=== PATIENT | male | born 1940 | race Hispanic/Latino ===

== ENCOUNTER 2016-09-25 06:52 | Outpatient (CLI) | payer MEDICARE ==
--- NOTE | 2016-09-25 11:58 | Cat Scan Report ---
CT CHEST WITHOUT CONTRAST: INDICATION: Interstitial lung disease. COMPARISON: 06/29/2014 chest CTA. FINDINGS: Noncontrast chest CT again demonstrates pulmonary arterial hypertension. No aortic aneurysm with few atherosclerotic calcifications. Assessment of the great vessels and for detecting subtle lymphadenopathy though limited due to lack of IV contrast. However, few small mediastinal lymph nodes again noted, measuring up to approximately 1 cm or smaller as on axial series 2, image 102. No size significant axillary lymphadenopathy. Normal thyroid. Normal heart size with silhouette mildly exaggerated due to pericardial fat pad. Patent central airway. Overall improvement in pulmonary ground glass haziness since June 2014, revealing mild emphysematous changes with most involvement of the upper lobes. Few lower lobe bullae also noted, the largest again at the right lung base measuring 4.3 cm, axial image 154, series 2. Mild bibasilar scarring and slight bronchiectasis also noted. Predominantly bilateral lower lobe septal thickening also noted, in part subpleural. An approximately 3 mm left lower lung calcified granuloma along the fissure, axial image 139, series 2 as also another right upper lobe posteromedially along the pleura, axial image 90 again seen. No effusions. Few upper abdominal images now demonstrate dependent density in the gallbladder, axial image 239, series 2, possibly sludge and/or small calculi. Mild bilateral perinephric stranding also again partially imaged. Upper anterior abdominal wall midline fat-containing hernia with a transverse neck of 2.5 cm, axial image 263, series 2. Multilevel thoracic spine degenerative changes, including large, predominantly right-sided osteophytes along its [id number] levels. CONCLUSION: 1. Overall interval improvement in bilateral pulmonary ground glass haziness, as described. Underlying emphysematous changes now evident, most involving the upper lobes with chronic interstitial changes at the lung bases, including scarring, subpleural septal thickening and few bullae noted, amongst others, as above. No significant honeycombing, however. 2. New gallbladder sludge/calculi. 3. Few other incidental findings, including pulmonary arterial hypertension and an upper abdominal midline ventral wall fat-containing hernia, amongst others, as above. Thank you for the opportunity to participate in this patient's care.
== END 2016-09-25 06:53 | disposition home or self-care (01) ==
LOC: CT 06:52
PROVIDERS: ATTEND Internal Medicine Critical Care Medicine
DX: J84.9 Interstitial pulmonary disease, unspecified (principal); K80.20 Calculus of gallbladder without cholecystitis without obstruction; M47.894 Other spondylosis, thoracic region; J43.8 Other emphysema
CPT/HCPCS: 71250

== ENCOUNTER 2016-11-19 00:24 | Emergency (ER) | payer MEDICARE ==
[2016-11-19] MEDS ORDERED: MORPHINE ONE ×2 (03:58→04:03)
[2016-11-19] MEDS ORDERED: APRESOLINE ONE (03:58)
[2016-11-19 06:03] LABS: Bilirubin,Urine NEG (Negative); Blood,Urine MOD (Negative); Ketones,Urine NEG (Negative); Leukocyte Esterase,Urine NEG (Negative); Mucus,Urine FEW /HPF; Nitrite,Urine NEG (Negative); Urobilinogen,Urine < 2.0 mg/dL (<2.0); WBC,Urine < 1.0 /HPF (0.0-6.0)
[2016-11-19 06:23] LABS: Alanine Aminotransferase 30 units/L (7-56); Albumin 4.2 g/dL (3.9-5); Albumin/Globulin Ratio 1.3 %; Alkaline Phosphatase 85 units/L (35-129); Anion Gap 18 mmol/L; Bilirubin,Total 0.5 mg/dL (0.1-1.2); Blood Urea Nitrogen 12 mg/dL (9-20); Calcium 9.2 mg/dL (8.4-10.2); Carbon Dioxide 30 mmol/L (22-30); Chloride 100.8 mmol/L (98-107); Glucose 132 mg/dL (75-100); Lipase 23 units/L (13-60); Potassium 4.4 mmol/L (3.6-5.0); Sodium 144 mmol/L (137-145); Total Protein 7.5 g/dL (6.3-8.2)
[2016-11-19 06:47] LABS: Basophils % (Auto) 1.3 % (0.0-1.8); Eosinophils % (Auto) 4.3 % (0.0-4.3); Hematocrit 44.2 % (35.5-45.6); Mean Corpuscular HGB Conc 34 % (32-34); Mean Corpuscular Hemoglobin 31 pg (28-32); Mean Corpuscular Volume 92 fl (84-94); Platelet Count 163 K/mm3 (140-440); Red Blood Count 4.79 M/mm3 (3.65-5.03); Red Cell Distribution Width 13.9 % (13.2-15.2); White Blood Count 5.5 K/mm3 (4.5-11.0)
--- NOTE | 2016-11-19 07:25 | XRay Report ---
Abdominal series: History: Chest and abdominal pain. Findings: Borderline cardiomegaly with bibasilar atelectasis. No free intraperitoneal air. No bowel distention or wall thickening or fluid levels. Stool in colon. No radiopaque calculus or abnormal calcification. Impression: Stool in ascending colon. No bowel distention.
--- NOTE | 2016-11-19 07:31 | Emergency Department Report ---
HPI - General Chief Complaint: Chest Pain Time Seen by Provider: 11/19/16 06:22 - HPI HPI: This is a 76-year-old male who drove himself in to be seen tonight with complaint of pain to the lower chest and upper abdomen that is been going on since about 6 PM this evening. Associated with some nausea and vomiting. He denies any back pain, dysuria, problems with bowel or bladder, fever, diaphoresis, shortness of breath. He has not taken anything for symptoms prior to presentation. He says that he ate some tuna salad for lunch and wonders if this could be some type of food poisoning. He feels like the pain is gas but he is unable to burp or pass gas rectally. He took some Gas-X for his symptoms without any relief. He has a past medical history of pulmonary arterial hypertension, hypertension. His PCP is Dr Abdalla and his pulmonolgist is Dr Gage. ED Past Medical Hx - Past Medical History Previous Medical History?: Yes Hx Hypertension: Yes Hx Heart Attack/AMI: No Hx Congestive Heart Failure: No Hx Deep Vein Thrombosis: No Hx Pulmonary Embolism: No Hx GERD: Yes Hx Arthritis: No Hx Seizures: No Hx Asthma: No Hx COPD: No Hx Tuberculosis: No Hx Dementia: No Hx HIV: No Additional medical history: wears home O2. - Surgical History Past Surgical History?: Yes Hx Coronary Stent: No Hx Open Heart Surgery: No Hx Pacemaker: No Hx Internal Defibrillator: No Additional Surgical History: hernia repair - Social History Smoking Status: Never Smoker Substance Use Type: None - Medications Home Medications: Home Medications Medication Instructions Recorded Confirmed Last Taken Type Aspirin [Aspirin BABY CHEW TAB] 81 mg PO QDAY 05/18/14 06/28/14 06/27/14 History Tamsulosin [Flomax] 0.4 mg PO QDAY 05/18/14 06/28/14 06/27/14 History Nebulizer/Compressor [Innospire 1 each MC DAILY #1 each 05/23/14 06/28/14 Rx Essence Alexandra Neb] Allopurinol [Zyloprim] 100 mg PO QDAY 06/28/14 06/28/14 06/27/14 History Amlodipine Besylate/Benazepril 1 cap PO DAILY 06/28/14 06/28/14 06/27/14 History [amLODIPine-Benazepril 10/40 mg] Atorvastatin (Nf) [Lipitor (Nf)] 20 mg PO QDAY 06/28/14 06/28/14 06/27/14 History Arformoterol Nebu [Brovana Nebu] 15 mcg IH DAILY #120 ml 07/03/14 Unknown Rx Budesonide [Pulmicort Respules] 0.5 mg IH Q12HRT #120 nebu 07/03/14 Unknown Rx Furosemide [Lasix] 40 mg PO DAILY #30 tablet 07/03/14 Unknown Rx Potassium Chloride [K-Dur] 20 meq PO QDAY #30 tablet 07/03/14 Unknown Rx Prednisone 10 mg PO DAILY #96 tablet 07/03/14 Unknown Rx ED Review of Systems ROS: Stated complaint: CP/ABD PAIN Other details as noted in HPI Other: Gen: No chills, diaphoresis or fever Eyes: No eye pain or discharge ENT: No throat pain or ear pain Cardio: +CP, no palpatations or edema. Lungs: No SOB or cough. Abd: +abdominal pain, +N/V : No dysuria, hematuria. Skin: No rash, lesions, pruritis Neuro: No headache, numbness or paresthesias. Physical Exam - Physical Exam Vital Signs: Vital Signs 11/19/16 00:30 Temperature 97.9 F Pulse Rate 60 Respiratory 20 Rate Blood Pressure 211/114 [Right] O2 Sat by Pulse 99 Oximetry Physical Exam: GENERAL: The patient is well-developed well-nourished. Patient does not appear in any acute distress. HEENT: Normocephalic. Atraumatic. Extraocular motions are intact. Patient has moist mucous membranes. Pupils equal reactive to light bilaterally. NECK: Supple. Trachea is midline. CHEST/LUNGS: Clear to auscultation. There is no respiratory distress noted. Chest pain is not reproducible to palpation of chest wall. HEART/CARDIOVASCULAR: Regular. There is no tachycardia. There is no gallop rub or murmur. ABDOMEN: Abdomen is soft, nontender. Abdominal pain is not reproducible to palpation. No guarding or rebound tenderness. Patient has normal bowel sounds. There is no abdominal distention. SKIN: There is no rash. There is no edema. There is no diaphoresis. NEURO: The patient is awake, alert, and oriented. The patient is cooperative. The patient has no focal neurologic deficits. The patient has normal speech and gait. Cranial nerves II through XII grossly intact. MUSCULOSKELETAL: There is no tenderness or deformity. There is no limitation range of motion. There is no evidence of acute injury. Muscle strength 5 out of 5 for upper and lower extremity bilaterally. Cap refill less than 2 seconds. ED Course Vital Signs 11/19/16 00:30 Temperature 97.9 F Pulse Rate 60 Respiratory 20 Rate Blood Pressure 211/114 [Right] O2 Sat by Pulse 99 Oximetry ED Medical Decision Making - Lab Data Result diagrams: 11/19/16 05:15 11/19/16 03:00 - EKG Data -: EKG Interpreted by Me EKG shows normal: sinus rhythm, axis, intervals, QRS complexes, ST-T waves Rate: normal - EKG Data When compared to previous EKG there are: no significant change Interpretation: normal EKG - Radiology Data Radiology results: report reviewed, image reviewed interpreted by me: Chest x-ray did not show any acute process. Heart is normal shape and size. No effusions. No pneumothorax. No signs of pneumonia seen. Abdomen shows stool throughout the colon. CT angiography of the chest shows that the heart is enlarged. There is no pericardial effusion. There is no thoracic aortic aneurysm or dissection. There are fibrotic and cystic changes at the lung bases. There are no active infiltrates, effusions or pneumothoraces. Images of the upper abdomen demonstrates cholelithiasis. There is a ventral hernia containing omental fat only. - Medical Decision Making 76-year-old male presents the emergency department with upper abdominal pain and lower chest pain. Patient's labs and mostly unremarkable including negative troponins 2. Patient's labs also include negative belly labs like lipase, LFTs and bilirubin. A chest and abdominal x-ray were done that did not show any acute process. However the patient did have a elevated d-dimer, slightly, at about 310, so a CT angiography of the chest was done. There was some concern with his area of discomfort that it could be the aorta but the CT angiography did not show any signs of aneurysm or dissection. They went far enough down to the upper abdomen that it display cholelithiasis without cholecystitis. However due to the patient's history of arterial pulmonary hypertension, hypertension and his chest pain, the plan was to admit to the hospital for further evaluation and probable cardio consultation. However the patient says that he is responsible for his daughter, who is going to end stage Alzheimer's, and his is also currently sick and he is unable to be admitted to the hospital. He understands the risks of leaving AGAINST MEDICAL ADVICE including continued pain, debility, heart attack, coma and . Despite that he is instructed and signing out AMA. He has an appointment next week with his line cook that he will keep. He knows he can return at any point to the emergency department for evaluation - Differential Diagnosis MT, cholelithiasis, hypertensive crisis, PE, pneumonia Critical Care Time: No Critical care attestation.: If time is entered above; I have spent that time in minutes in the direct care of this critically ill patient, excluding procedure time. ED Disposition Clinical Impression: Biliary colic, Hypertensive urgency Cholelithiasis Qualifiers: Cholelithiasis location: gallbladder Cholecystitis presence: without cholecystitis Biliary obstruction: without biliary obstruction Qualified Code(s) : K80.20 - Calculus of gallbladder without cholecystitis without obstruction Chest pain Qualifiers: Chest pain type: unspecified Qualified Code(s): R07.9 - Chest pain, unspecified Disposition: LEFT AGAINST MEDICAL ADVICE Is pt being admited?: No Condition: Stable Instructions: Chest Pain (ED), Biliary Colic (ED), Hypertension (ED) Referrals: PRIMARY CARE, [Primary Care Provider] - 3-5 Days Forms: AMA Form Time of Disposition: 07:32
[2016-11-19] MEDS ORDERED: MORPHINE IV ONE (07:34)
[2016-11-19 08:04] VITALS: BP 171/92
--- NOTE | 2016-11-19 08:58 | Cat Scan Report ---
FINAL REPORT PROCEDURE: CT ANGIOGRAPHY CHEST TECHNIQUE: Computerized axial tomographic angiography of the chest and pulmonary arteries was performed after the IV injection of iodinated nonionic contrast. The image data was postprocessed using maximum intensity projection (MIP) and 2-dimensional multiplanar reformatted (MPR) techniques. The examination is specifically tailored to the evaluation of the pulmonary arteries per clinical request. HISTORY: Short of breath 786.09, chest pain 786.50, chest pain and elev d-dimer epigastric pain COMPARISON: No prior studies are available for comparison. FINDINGS: Heart and pericardium: Heart is enlarged. There is no pericardial effusion.. Thoracic aorta: There is no thoracic aortic aneurysm or dissection.. Pulmonary vasculature: Normal. No pulmonary emboli. Lymph nodes: No enlarged thoracic lymph nodes. Lungs: There are fibrotic and cystic changes at the lung bases. There are no active infiltrates, effusions or pneumothoraces.. Pleural space: No effusion, thickening, or pneumothorax. Musculoskeletal structures: No significant abnormality. Upper abdominal structures: Images of the upper abdomen demonstrate cholelithiasis. There is a ventral hernia containing omental fat only.. IMPRESSION: Heart is enlarged. There is no pericardial effusion.. There is no thoracic aortic aneurysm or dissection.. There are fibrotic and cystic changes at the lung bases. There are no active infiltrates, effusions or pneumothoraces.. Images of the upper abdomen demonstrate cholelithiasis. There is a ventral hernia containing omental fat only.. .
== END 2016-11-19 07:32 | disposition left against medical advice (07) ==
LOC: ED 00:24
DX: K80.20 Calculus of gallbladder without cholecystitis without obstruction (principal); K80.50 Calculus of bile duct without cholangitis or cholecystitis without obstruction; I10 Essential (primary) hypertension; R07.9 Chest pain, unspecified
CPT/HCPCS: 36415; 71275; 74022; 80053; 81001; 83690; 84484; 85025; 93005; 93010; 96374; 99285; J2270; Q9967; J0360

== ENCOUNTER 2016-12-03 11:22 | Day surgery (SDC) | payer MEDICARE ==
[~2016-12-03 11:22] MED LIST: ANCEF/STERILE WATER 2 GM/20 ML 2 GM/20 ML SYRINGE IV SCH; DECADRON ONE; DILAUDID ONE; DIPRIVAN 10 MG/ML IV ONE; XYLOCAINE MPF 2% ONE; ZEMURON IV ONE; ZOFRAN ONE; ceFAZolin 2 GM in NACL 0.9% 100 ML IV ONE
--- NOTE | 2016-12-03 12:06 | Anesthesia Consultation ---
Anesthesia Consult and Med Hx Date of service: 12/03/16 - Airway Anesthetic Teeth Evaluation: Bridges, Dentures Mallampati Class: Class II Intubation Access Assessment: Probably Good - Pulmonary Exam CTA: Yes - Cardiac Exam Cardiac Exam: RRR - Pre-Operative Health Status ASA Pre-Surgery Classification: ASA3 Proposed Anesthetic Plan: General - Pulmonary Hx Smoking: Yes (CIGARETTES 1 1/2 PPD X 13 YRS, QUIT 45 YRS AGO) Hx Asthma: No COPD: No Hx Pneumonia: No Hx Sleep Apnea: No - Cardiovascular System Hx Hypertension: Yes (FOR 10+ YRS, DR. 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 Last took baby aspirin 11/28/16.
--- NOTE | 2016-12-03 12:06 | Anesthesia Day of Surgery ---
Anesthesia Day of Surgery - Day of Surgery Patient Examined: Yes Patient H&P Reviewed: Yes Patient is NPO: Yes
[2016-12-03] MEDS: VERSED IV PRN ×2 (12:40→12:46)
[2016-12-03] MEDS ORDERED: NACL 0.9% 1000 ML 1,000 ML IV ONE (13:00)
[2016-12-03] MEDS ORDERED: PEPCID IV NR (13:00)
[2016-12-03] MEDS ORDERED: ANCEF/STERILE WATER 2 GM/20 ML 2 GM/20 ML SYRINGE IV SCH (13:00)
--- NOTE | 2016-12-03 13:18 | Admit Criteria Form ---
Admission Criteria Documentation: AMBULATORY SURGERY EXCEPTION CRITERIA Ambulatory Surgery Exception Criteria ( Place 'X' for any and all applicable criteria): Surgery or procedure performed on ambulatory basis may require inpatient stay for[A] ANY ONE of the following(1)(2)(3)(4)(5)(6)(7)(8)(9): [X] I. A preoperative situation, condition, or finding that warrants inpatient stay as indicated by ANY ONE of the following: [] a) Inpatient care needed because of severity of a disease or condition rather than the surgery (eg, severe cardiac or respiratory disease, severe infection) (15) (16 ) (17) (18) [] b) Emergent procedure (eg, angioplasty for acute ischemia)(19) [] c) Complex surgical approach or situation as indicated by ANY ONE of the following(3): [] i) Open approach needed instead of usual endoscopic, transcatheter, or other less invasive procedure [] ii) Difficult approach because of previous operation [] iii) Airway monitoring required after open neck procedures(20)(21) [] iv) Large mass requiring unusually extensive dissection [] v) Additional complicating feature requiring inpatient care (eg, drain management)(22(23): [X] d) Major surgery in a pt with high anesthetic risk as indicated by ANY ONE of the following (2)(3)(5)(7)(8): [X] i) ASA risk class III or higher (severe systemic disease impairing function) [D] [] ii) Advanced age (eg, older than 85 years)(14)(24) [] iii) Symptomatic heart failure(25) [] iv) Symptomatic asthma or COPD(8)(21) [] v) Morbid obesity with hemodynamic or respiratory problems(20)( 21)(26)(27) [] vi) Obstructive sleep apnea(20)(21) [] vii) Former premature infants who are younger than 60 weeks [] viii) High risk for severe postoperative abnormalities (eg, severe postoperative hypocalcemia after parathyroidectomy for severe hyperparathyroidism)(27)( 28) [] ix) Unstable angina(25) [] e) Drug-related risk requiring inpatient stay as indicated by ANY ONE of the following(5)(10)(14)(32)(33) [] i) Procedure requires discontinuing drugs or other therapy (eg , antiarrhythmic medication, antiseizure medication), which necessitates inpatient observation or treatment.(18)(31) [] ii) Major surgery and high risk drug use as indicated by ANY ONE of the following: [] 1) Active abuse of cocaine or similar drug [] 2) Monoamine oxidase inhibitor use [] 3) Other drug identified as posing risk [] f) Inadequate outpatient care situation as indicated by ANY ONE of the following(5)(10)(14)(32)(33) [] i) Patient lives remote from medical facility and procedure has urgent complication potential, and temporary nearby residence cannot be arranged [] ii) Patient will have postprocedure incapacitation and inadequate assistance at home, or alternative level of care cannot be arranged. [] iii) Patient will have long general anesthesia or procedure side effect resolution time, and competent person to stay with patient on first postoperative night at home or alternative level of care cannot be arranged. []iv) Other inadequate outpatient situation that cannot be handled by other means [] II. A perioperative event, condition, or finding that warrants inpatient stay as indicated by ANY ONE of the following (1)(2)(3): [] a) Inadequate physiologic recovery: cardiovascular, respiratory, or hemodynamic status not normal or near preoperative baseline(18) [] b) Hemodynamic instability [] c) Patient not alert with near normal or baseline mental status [] d) Temperature not normal or as expected and not appropriate for outpatient treatment of condition [] e) Ambulatory or appropriate activity level status not yet achieved post procedure [E](34)(35)(36) [] f) Operative site not appropriate (eg, unexpected or excessive drainage or bleeding) [] g) Postoperative effects not resolved or adequately managed (eg, significant pain or vomiting not appropriate for outpatient or next level of care)(10)(12) [] h) Complicating features requiring inpatient care as indicated by ANY ONE of the following(37): [] i) Severe complications of procedure (eg, bowel injury, airway compromise, vascular injury,severe hemorrhage) [] ii) Extensive (eg, dissection far beyond usual scope of procedure ) or prolonged (eg, 120 minutes beyond usual) surgery needed requiring inpatient postoperative care [] iii) Conversion to an open or complex procedure that requires inpatient care (eg, open vs laparoscopic cholecystectomy, abdominal vs vaginal hysterectomy)(38) [] iv) Comorbid condition or test result identified during or post procedure that requires inpatient care (7) [] v) Malignant hyperthermia(30) [] vi) Other complicating feature requiring inpatient care(22)(23) Inpatient stay may be needed until ALL of the following are present (1)(2)(3)(4) (5)(6)(10)(14)(33)(40): []a) Physiologic recovery: cardiovascular, respiratory, and hemodynamic status normal or near preoperative baseline []b) Hemodynamic stability []c) Patient alert, with near normal or baseline mental status []d) Temperature appropriate: patient afebrile or temperature appropriate for outpt treatment of condition []e) Activity level appropriate: ambulatory or appropriate activity level post procedure []f) Operative site appropriate as indicated by ALL of the following: []i) Site dry or with expected drainage []ii) Any blood noted is as expected for procedure. []g) Postoperative effects resolved or managed as indicated by ALL of the following: []i) Pain management appropriate for outpatient (or next level of) care(10) []ii) Minimal nausea and vomiting: if present, successfully treated with oral medication(12) []iii) Headache, dizziness, or drowsiness (if present) are mild. []h) Voiding status acceptable as indicated by ANY ONE of the following: []i) Voiding spontaneously []ii) No voiding but instructions given for follow-up in 6 to 8 hours []iii) Urinary catheter in place, and instructions given for follow-up []i) Complicating features requiring inpatient care manageable at a lower level of care(37) []j) Comorbid conditions manageable at a lower level of care(37) The original [employer] content created by [employer] has been revised. The portions of the content which have been revised are identified through the use of italic text or in bold, and [facility] [employer] has neither reviewed nor approved the modified material. All other unmodified content is copyright [employer]. Please see references footnoted in the original [employer] edition 2016 Admission Criteria Met: Yes
[2016-12-03] MEDS ORDERED: MARCAINE-EPI 0.25%-1:200,000 INFILTRATI ONE ×2 (13:47→15:00)
[2016-12-03] MEDS ORDERED: NACL 0.9% IR ONE (15:01)
[2016-12-03] MEDS ORDERED: NORCO 5/325 PO PRN (15:17)
[2016-12-03] MEDS ORDERED: ZOFRAN IV PRN (15:17)
--- NOTE | 2016-12-03 15:17 | Operative Report ---
Operative Report Operative Report: Date of procedure: 12/03/2016 Pre-operative diagnosis: Biliary colic Post-operative diagnosis: Chronic cholecystitis Procedure name(s): Laparoscopic cholecystectomy Surgeon: Dong Pimentel MD Area Mechanic: Nain Jain M.D. Anesthesia: General EBL: Minimal Complications: None Instrument Count: correct Indications: This is a 76-year-old male with a history of right upper quadrant pain. His workup was consistent with a biliary etiology. He was offered the above-named procedures a possible treatment modality. The risks and benefits of discussed until all questions were answered. He was subsequently brought to the OR. Findings: Chronic cholecystitis, incarcerated upper abdominal incisional hernia containing omentum Procedure: We reviewed the informed consent. We placed the patient supine upon the table. After adequate anesthesia was reached, the patient was prepped and draped in usual sterile fashion. A 5 mm incision was made the level of umbilicus and a Veress needle was placed at this position. The abdomen was then insufflated to 15 mmHg and a 5 mm trocar was placed through the umbilical incision. We inserted the camera at this time. Under direct vision and after infiltration of local anesthetic an 11 mm port was placed in the epigastric location. This was followed by placement of two five mm ports in the right upper quadrant. We identified the gallbladder and the fundus was grasped. This was retracted superiorly. We then grasped the infundibulum and retracted it laterally. At this time we dissected free the cystic duct infundibular junction until the triangle of Calot was clearly identified. We placed 3 clips proximally on the cystic duct, 2 distally. We placed 2 clips proximally on the cystic artery. We transected the cystic duct sharply. We transected the cystic artery using electrocautery. We then dissected the gallbladder free from its fossa using electrocautery. This was placed in Endo Catch bag and removed the abdomen to be sent to pathology for further evaluation. We assured hemostasis at this time. We irrigated the abdomen until the irrigant returned clear. We then evacuated the insufflation. We removed all ports and closed all port sites using a 4-0 Monocryl in a subcuticular fashion. The wounds were bandaged sterilely. The patient tolerated procedure well. They were taken to PACU in no apparent distress after extubation.
[2016-12-03] MEDS: DILAUDID IV PRN ×4 (15:29→16:22)
--- NOTE | 2016-12-03 15:29 | Short Stay Summary ---
Short Stay Documentation Date of service: 12/03/16 - History H&P: obtained from office - Allergies and Medications Current Medications: Allergies No Known Allergies Allergy (Verified 10/20/15 12:02) Home Medications Medication Instructions Recorded Confirmed Last Taken Type Aspirin [Aspirin BABY CHEW TAB] 81 mg PO QDAY 05/18/14 12/01/16 11/28/16 08:00 History Tamsulosin [Flomax] 0.4 mg PO QDAY 05/18/14 12/03/16 11/28/16 History Allopurinol [Zyloprim] 100 mg PO QDAY 06/28/14 12/03/16 11/28/16 History Amlodipine Besylate/Benazepril 1 cap PO DAILY 06/28/14 12/03/16 11/28/16 History [amLODIPine-Benazepril 10/40 mg] Atorvastatin (Nf) [Lipitor (Nf)] 20 mg PO QDAY 06/28/14 12/03/16 11/21/16 History Furosemide [Lasix] 40 mg PO DAILY #30 tablet 07/03/14 12/03/16 11/28/16 Rx Potassium Chloride [K-Dur] 20 meq PO QDAY #30 tablet 07/03/14 12/03/16 11/28/16 Rx Budesonide [Pulmicort] 0.25 mg IH QDAY 12/01/16 12/03/16 12/02/16 History [place]-3S/Dha/Epa/Fish Oil [Fish 1 each PO QDAY 12/01/16 12/03/16 11/28/16 History Oil 1,200 mg Softgel] Omeprazole Magnesium [PriLOSEC Otc] 20 mg PO QDAY 12/01/16 12/03/16 12/01/16 History Tadalafil (Nf) [Adcirca (Nf)] 40 mg PO QDAY 12/01/16 12/03/16 11/28/16 History ALPRAZolam [Xanax TAB] 0.5 mg PO QDAY PRN 12/02/16 12/03/16 11/28/16 History Active Medications Acetaminophen/Hydrocodone Bitart ([place] 5/325) 2 each PO ONCE PRN PRN Reason: Pain, Moderate (4-6) Stop: 12/03/16 15:18 Famotidine (Pepcid) 20 mg IV PREOP NR Stop: 12/03/16 23:00 Last Admin: 12/03/16 12:35 Dose: 20 mg Hydromorphone HCl (Dilaudid) 0.5 mg IV Q10MIN PRN PRN Reason: Pain , Severe (7-10) Stop: 12/06/16 15:18 Sodium Chloride (Nacl 0.9% 1000 Ml) 1,000 mls @ 42 mls/hr IV ONCE ONE Stop: 12/04/16 12:48 Last Admin: 12/03/16 12:30 Dose: 42 mls/hr Cefazolin Sodium (Ancef/Sterile Water 2 Gm/20 Ml) 2 gm in 20 mls @ 80 mls/hr IV PREOP HARDY Stop: 12/03/16 23:59 Midazolam HCl (Versed) 2 mg IV PREOP PRN PRN Reason: Agitation Last Admin: 12/03/16 12:46 Dose: 2 mg Ondansetron HCl (Zofran) 4 mg IV ONCE PRN PRN Reason: Nausea And Vomiting Stop: 12/03/16 15:18 - Brief post op/procedure progress note Date of procedure: 12/03/16 Pre-op diagnosis: biliary colic Post-op diagnosis: other (chronic cholecystitis) Procedure: Laparoscopic cholecystectomy Anesthesia: GETA Findings: As above Surgeon: SYLVIA HERNÁNDEZ Dining Manager: VIRGINIA MURRAY Estimated blood loss: minimal Pathology: list (gallbladder) Specimen disposition: to lab Condition: stable - Disposition Condition at discharge: Stable Disposition: DISCHARGED TO HOME OR SELFCARE Short Stay Discharge Plan Diet: low fat Wound: open to air, keep clean and dry Follow up with: RONNY ANNE MD [Primary Care Provider] - 7 Days SYLVIA HERNÁNDEZ MD [Staff Physician] - 7 Days Prescriptions: oxyCODONE /ACETAMINOPHEN [Percocet 5/325] 1 tab PO Q6HR PRN #30 tablet PRN Reason: Pain
[2016-12-03] MEDS ORDERED: TORADOL IV PRN ×2 (16:16→16:35)
--- NOTE | 2016-12-03 16:40 | Post Anesthesia Evaluation ---
- Post Anesthesia Evaluation Patient Participated: Yes Airway Patent: Yes Stable Respiratory Function: Yes Temp > 96.8F: Yes Pain Manageable: Yes Adequeate Hydration: Yes Anesthesia Complications: No Block Receding Appropriately: Not Applicable
[2016-12-03 18:27] VITALS: BP 124/62
== END 2016-12-03 18:00 | disposition home or self-care (01) ==
LOC: OR 11:22
PROVIDERS: ATTEND Surgery
DX: K80.10 Calculus of gallbladder with chronic cholecystitis without obstruction (principal); I10 Essential (primary) hypertension; E78.00 Pure hypercholesterolemia, unspecified; Z87.891 Personal history of nicotine dependence; Z79.899 Other long term (current) drug therapy; Z80.0 Family history of malignant neoplasm of digestive organs
CPT/HCPCS: 47562; 88304; J0690; J1100; J1170; J1885; J2250; J2405; J2704; J7030

== ENCOUNTER 2016-12-06 19:32 | Emergency (ER) | payer MEDICARE ==
[2016-12-06 20:18] LABS: Basophils % (Auto) 0.3 % (0.0-1.8); Eosinophils % (Auto) 1.8 % (0.0-4.3); Hematocrit 39.1 % (35.5-45.6); Hemoglobin 13.5 gm/dl (11.8-15.2); Mean Corpuscular HGB Conc 35 % (32-34); Mean Corpuscular Hemoglobin 31 pg (28-32); Mean Corpuscular Volume 91 fl (84-94); Platelet Count 143 K/mm3 (140-440); Red Blood Count 4.29 M/mm3 (3.65-5.03); Red Cell Distribution Width 13.1 % (13.2-15.2); White Blood Count 7.7 K/mm3 (4.5-11.0)
[2016-12-06 20:23] LABS: Alanine Aminotransferase 18 units/L (7-56); Albumin 3.4 g/dL (3.9-5); Alkaline Phosphatase 92 units/L (35-129); Anion Gap 18 mmol/L; BUN/Creatinine Ratio 21.42; Bilirubin,Total 0.8 mg/dL (0.1-1.2); Blood Urea Nitrogen 15 mg/dL (9-20); Calcium 8.6 mg/dL (8.4-10.2); Carbon Dioxide 26 mmol/L (22-30); Chloride 95.1 mmol/L (98-107); Glucose 125 mg/dL (75-100); Lipase 14 units/L (13-60); Potassium 3.9 mmol/L (3.6-5.0); Sodium 135 mmol/L (137-145); Total Protein 6.9 g/dL (6.3-8.2)
[2016-12-06] MEDS ORDERED: MORPHINE IV ONE ×2 (20:50→23:39)
[2016-12-06] MEDS ORDERED: DUONEB 0.5 MG-3 MG/3 ML SOLN IH ONE (20:50)
--- NOTE | 2016-12-06 20:53 | Emergency Department Report ---
HPI - General Chief Complaint: Abdominal Pain Time Seen by Provider: 12/06/16 20:17 - HPI HPI: This is a 76-year-old male who presents emergency department from home , driven in by his daughter, with complaint of severe abdominal pain since the patient had a elective cholecystectomy on December 03, last . He denies any nausea, vomiting, chest pain, shortness of breath. He has been having pain since the procedure ended. No trauma. Patient denies any problems with bowel or bladder. Patient presents with some hypoxia. He has a history of pulmonary hypertension and sometimes doesn't wear home O2. He denies any fever. He's been taking the Percocet that was prescribed to him without much relief. He has been unable to get much sleep secondary to pain. The surgery was done by Dr. Montague of [facility]. ED Past Medical Hx - Past Medical History Previous Medical History?: Yes Hx Hypertension: Yes (FOR 10+ YRS, DR. 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 pulmonary artery hypertension - Surgical History Past Surgical History?: Yes Hx Coronary Stent: No Hx Open Heart Surgery: No Hx Pacemaker: No Hx Internal Defibrillator: No Hx Cholecystectomy: Yes Additional Surgical History: hernia repair, - Social History Smoking Status: Never Smoker Substance Use Type: Alcohol - Medications Home Medications: Home Medications Medication Instructions Recorded Confirmed Last Taken Type Aspirin [Aspirin BABY CHEW TAB] 81 mg PO QDAY 05/18/14 12/01/16 11/28/16 08:00 History Tamsulosin [Flomax] 0.4 mg PO QDAY 05/18/14 12/03/16 11/28/16 History Allopurinol [Zyloprim] 100 mg PO QDAY 06/28/14 12/03/16 11/28/16 History Amlodipine Besylate/Benazepril 1 cap PO DAILY 06/28/14 12/03/16 11/28/16 History [amLODIPine-Benazepril 10/40 mg] Atorvastatin (Nf) [Lipitor (Nf)] 20 mg PO QDAY 06/28/14 12/03/16 11/21/16 History Furosemide [Lasix] 40 mg PO DAILY #30 tablet 07/03/14 12/03/16 11/28/16 Rx Potassium Chloride [K-Dur] 20 meq PO QDAY #30 tablet 07/03/14 12/03/16 11/28/16 Rx Budesonide [Pulmicort Respules] 0.25 mg IH QDAY 12/01/16 12/03/16 12/02/16 History [place]-3S/Dha/Epa/Fish Oil [Fish 1 each PO QDAY 12/01/16 12/03/16 11/28/16 History Oil 1,200 mg Softgel] Omeprazole Magnesium [PriLOSEC Otc] 20 mg PO QDAY 12/01/16 12/03/16 12/01/16 History Tadalafil (Nf) [Adcirca (Nf)] 40 mg PO QDAY 12/01/16 12/03/16 11/28/16 History ALPRAZolam [Xanax TAB] 0.5 mg PO QDAY PRN 12/02/16 12/03/16 11/28/16 History oxyCODONE /ACETAMINOPHEN [Percocet 1 tab PO Q6HR PRN #30 tablet 12/03/16 Unknown Rx 5/325] ED Review of Systems ROS: Stated complaint: POST GALL BLADDER REMOVAL SURG Other details as noted in HPI Comment: All other systems reviewed and negative Constitutional: denies: chills, fever Eyes: denies: eye pain, eye discharge, vision change ENT: denies: ear pain, throat pain Respiratory: denies: cough, shortness of breath, wheezing Cardiovascular: denies: chest pain, palpitations Gastrointestinal: abdominal pain. denies: nausea, diarrhea Genitourinary: denies: urgency, dysuria Musculoskeletal: denies: back pain, joint swelling, arthralgia Skin: denies: rash, lesions Neurological: denies: headache, weakness, paresthesias Physical Exam - Physical Exam Vital Signs: Vital Signs 12/06/16 12/06/16 19:35 20:10 Temperature 99.5 F Pulse Rate 103 H Respiratory 18 20 Rate Blood Pressure 158/88 O2 Sat by Pulse 92 Oximetry Physical Exam: GENERAL: The patient is well-developed well-nourished. HEENT: Normocephalic. Atraumatic. Extraocular motions are intact. Patient has moist mucous membranes. Pupils equal reactive to light bilaterally. NECK: Supple. Trachea is midline. CHEST/LUNGS: Clear to auscultation. There is no respiratory distress noted. HEART/CARDIOVASCULAR: Regular. There is no tachycardia. There is no gallop rub or murmur. ABDOMEN: Abdomen is soft. There is some tenderness. Patient to the right upper and epigastric abdominal regions. No guarding or rebound tenderness. Patient has normal bowel sounds. There is no abdominal distention. No peritoneal signs. SKIN: Skin is warm and dry. NEURO: The patient is awake, alert, and oriented. The patient is cooperative. The patient has no focal neurologic deficits. The patient has normal speech. MUSCULOSKELETAL: There is no tenderness or deformity. There is no limitation range of motion. There is no evidence of acute injury. ED Course Vital Signs 12/06/16 12/06/16 19:35 20:10 Temperature 99.5 F Pulse Rate 103 H Respiratory 18 20 Rate Blood Pressure 158/88 O2 Sat by Pulse 92 Oximetry ED Medical Decision Making - Lab Data Result diagrams: 12/06/16 19:48 12/06/16 19:48 - Radiology Data Radiology results: report reviewed, image reviewed interpreted by me: Abdominal x-ray shows no free air. There is nonobstructive not specific bowel gas. Chest x-ray does not show any pleural effusion, pneumothorax. There is a streaky area to the right lower lobe that appears most consistent with atelectasis. CT of the abdomen and pelvis with IV contrast shows recent postsurgical changes of cholecystectomy. Mild fat stranding and trace fluid at the cholecystectomy site. No abscess. Small amount of free air scattered within the abdomen that is compatible with recent surgery. Large and small bowel loops normal in caliber. No bowel obstruction. Appendix is normal. Mild to moderate diverticulosis of the left colon. Diverticulitis. Nonspecific consolidations at the lung bases which may reflect postoperative atelectasis. - Medical Decision Making 76-year-old male presents the emergency department with abdominal pain 3 days status post cholecystectomy, but the pain has been going on since the operation took place. Patient does not have any fever, nausea, vomiting. His abdomen is tender palpation but is not toxic or rigid. Patient's labs and unremarkable. Vital signs stable throughout his ED course. He did have some hypertension but it came down to a reasonable level with some pain control. Patient had abdominal x-ray and that CT scan of the abdomen and pelvis that did not show any acute process of the abdomen or any concern for post op infection or any abdominal surgical emergency. Patient was given a few doses of pain medication and upon reevaluation is feeling much better. He still has pain medication written by his general surgeon and has been encouraged to follow up with that surgeon in the next few days. He will return to the ER with any worsening of symptoms or any acute distress. - Differential Diagnosis abdominal abscess, postop pain, colitis, bowel obstruction Critical Care Time: No Critical care attestation.: If time is entered above; I have spent that time in minutes in the direct care of this critically ill patient, excluding procedure time. ED Disposition Clinical Impression: Post-op pain Abdominal pain Qualifiers: Abdominal location: generalized Qualified Code(s): R10.84 - Generalized abdominal pain Hypertension Qualifiers: Hypertension type: essential hypertension Qualified Code(s): I10 - Essential ( primary) hypertension Disposition: DISCHARGED TO HOME OR SELFCARE Is pt being admited?: No Condition: Stable Instructions: Abdominal Pain (ED), Hypertension (ED) Additional Instructions: Please follow-up with your primary care doctor and your surgeon the next few days. Return to the emergency department with any worsening of your symptoms or any acute distress. Referrals: PRIMARY MD WILLIAM [Primary Care Provider] - 3-5 Days Time of Disposition: 00:06
--- NOTE | 2016-12-06 20:58 | XRay Report ---
FINAL REPORT EXAM: XR ABDOMEN 2V HISTORY: abd pain, post op COMPARISON: None available. FINDINGS: AP views of the abdomen obtained. Moderate stool in the right colon. Relative paucity of small bowel gas. Small amount of gas is scattered within a few nondilated small bowel loops. Haziness of abdomen centrally.. Multiple pelvic phleboliths. No gross pathological calcifications. Surgical clips right upper quadrant. IMPRESSION: Nonspecific bowel gas pattern. No edgar obstruction. Moderate stool in the right colon. Paucity of small bowel gas which may relate to fluid-filled small bowel loops are decompressed small-bowel loops. Haziness of the abdomen centrally concerning for ascites.
[2016-12-06 21:21] LABS: Bilirubin,Urine NEG (Negative); Blood,Urine MOD (Negative); Ketones,Urine NEG (Negative); Leukocyte Esterase,Urine NEG (Negative); Nitrite,Urine NEG (Negative); Protein,Urine <15 mg/dL mg/dL (Negative); RBC,Urine < 1.0 /HPF (0.0-6.0); Urobilinogen,Urine < 2.0 mg/dL (<2.0); WBC,Urine < 1.0 /HPF (0.0-6.0)
[2016-12-06 23:09] VITALS: BP 147/84
--- NOTE | 2016-12-06 23:22 | Cat Scan Report ---
FINAL REPORT EXAM: CT ABDOMEN PELVIS W CON HISTORY: Abd pain, post op from cholecystectomy COMPARISON: None available. TECHNIQUE: Contiguous axial images were obtained. Additional sagittal and coronal reformatted images were obtained. Administration of IV contrast given per institution protocol. Images submitted for interpretation. FINDINGS: Recent surgical changes of cholecystectomy. Nonspecific fat stranding and trace fluid at the cholecystectomy site. No abscess. No edgar biliary dilatation. The common bile duct measures 7 millimeters within normal limits for patient age. Small amount of pockets of gas within the abdomen compatible with recent surgery. Homogeneous enhancement of the liver, spleen, pancreas. Mild nodular thickening of adrenal glands. Nonspecific consolidations of the lower lobes likely reflecting postoperative atelectasis. Mild fibrosis at the lung bases. Trace bilateral pleural effusions. Symmetric enhancement the kidneys. 6 millimeter exophytic posterior left renal lesion. This may reflect a tiny cyst but is too small to accurately characterize. No solid renal lesion. No hydronephrosis otherwise. Aorta and IVC are normal in caliber. Mild calcification aorta. Small supraumbilical hernia containing fat and tiny amount of gas. The appendix is normal in caliber. Large and small bowel loops normal in caliber. Moderate stool in the right colon. Mild to moderate diverticulosis of left colon. No diverticulitis. Urinary bladder and prostate gland are grossly unremarkable. Bony pelvis and lumbar spine are grossly intact. Moderate degenerative changes of the lumbar spine. IMPRESSION: Recent postsurgical changes of cholecystectomy. Mild fat stranding and trace fluid at the cholecystectomy site. No abscess. Small amount of free air scattered within the abdomen compatible with recent surgery. Large and small bowel loops normal in caliber. No bowel obstruction. The appendix is normal in caliber. Mild to moderate diverticulosis of left colon. No diverticulitis. Nonspecific consolidations at the lung bases which may reflect postoperative atelectasis. Pneumonia cannot be excluded. Trace bilateral pleural effusions. Mild fibrosis at the lung bases.
--- NOTE | 2016-12-07 08:48 | XRay Report ---
Single view chest: History: Cough. Findings: Mild cardiomegaly. Low volume lungs. Trachea is midline. Bibasilar linear densities. Normal CP angles. Impression: Bibasilar density suggestive discoid/segmental atelectasis or pneumonitis.
== END 2016-12-07 00:29 | disposition home or self-care (01) ==
LOC: ED 19:32
DX: G89.18 Other acute postprocedural pain (principal); R10.84 Generalized abdominal pain; I10 Essential (primary) hypertension; K21.9 Gastro-esophageal reflux disease without esophagitis; Z90.49 Acquired absence of other specified parts of digestive tract; Z79.82 Long term (current) use of aspirin
CPT/HCPCS: 36415; 71010; 74020; 74177; 80053; 81001; 82140; 83690; 85025; 94640; 96374; 96376; 99285; J2270; Q9967

== ENCOUNTER 2017-05-13 06:40 | Inpatient (IN) | payer MEDICARE ==
[2017-05-13 07:16] LABS: Basophils % (Auto) 0.2 % (0.0-1.8); Eosinophils % (Auto) 2.1 % (0.0-4.3); Hematocrit 42.3 % (35.5-45.6); Hemoglobin 14.8 gm/dl (11.8-15.2); Mean Corpuscular HGB Conc 35 % (32-34); Mean Corpuscular Hemoglobin 33 pg (28-32); Mean Corpuscular Volume 95 fl (84-94); Platelet Count 120 K/mm3 (140-440); Red Blood Count 4.45 M/mm3 (3.65-5.03); White Blood Count 7.2 K/mm3 (4.5-11.0)
[2017-05-13 07:26] LABS: INR 0.98 (0.87-1.13)
[2017-05-13 07:27] LABS: Partial Thromboplastin Time 31.1 Sec. (24.2-36.6)
[2017-05-13 07:35] LABS: Alanine Aminotransferase 36 units/L (7-56); Albumin 4.3 g/dL (3.9-5); Albumin/Globulin Ratio 1.3 %; Alkaline Phosphatase 80 units/L (35-129); Anion Gap 17 mmol/L; Blood Urea Nitrogen 15 mg/dL (9-20); Calcium 9.1 mg/dL (8.4-10.2); Carbon Dioxide 28 mmol/L (22-30); Glucose 112 mg/dL (75-100); Lipase 24 units/L (13-60); Potassium 4.6 mmol/L (3.6-5.0); Sodium 138 mmol/L (137-145); Total Protein 7.6 g/dL (6.3-8.2)
--- NOTE | 2017-05-13 07:38 | XRay Report ---
ROUTINE CHEST, TWO VIEWS: HISTORY: Shortness of breath. Compared to 12/06/16. There is poor inspiration. Bibasilar opacities have resolved since the previous exam. The lungs are generally clear. Heart size is at the upper limits of normal. Normal pulmonary vascularity. The bony structures are grossly intact. IMPRESSION: No acute cardiopulmonary process identified.
[2017-05-13] MEDS ORDERED: MORPHINE IV ONE (08:06)
--- NOTE | 2017-05-13 08:11 | Emergency Department Report ---
ED Chest Pain HPI - General Chief Complaint: Chest Pain Stated Complaint: CP Time Seen by Provider: 05/13/17 07:46 Source: patient Mode of arrival: Ambulatory Limitations: No Limitations - History of Present Illness Initial Comments: 76-year-old male presents to the emergency department by EMS from home with complaint of some midsternal and slightly left-sided chest pain has been going on since last night. The patient says that he ate some bread and peanut butter, drank a diet Coke, and the pain started shortly after this but has been going on consistently since. He has been having some belching. He also complains of worsening of his pain with inspiration. He has not taken anything for his symptoms prior to presentation. He denies any nausea, vomiting , fever, back pain or diaphoresis. He has a past medical history of GERD, hypertension, pulmonary hypertension on home O2. He has a surgical history of cholecystectomy and hernia repair. He sees Dr. Oneal for cardiology, Dr. Gage for pulmonary, and Dr. Arnold for PCP. Recent travel or sick contacts at home. The patient says that he was at [facility] about 5 months ago and had a full workup, including stress test, and was told that he has "the heart of a 49-year-old" which I am assuming means that everything was negative and/or normal. Severity scale (0 -10): 3 - Related Data Home Medications Medication Instructions Recorded Confirmed Last Taken Aspirin [Aspirin BABY CHEW TAB] 162 mg PO DAILY 05/18/14 05/13/17 05/12/17 Tamsulosin [Flomax] 0.4 mg PO QDAY 05/18/14 05/13/17 05/12/17 Allopurinol [Zyloprim] 100 mg PO QDAY 06/28/14 05/13/17 05/12/17 Atorvastatin (Nf) [Lipitor (Nf)] 20 mg PO QDAY 06/28/14 05/13/17 05/12/17 Tadalafil (Nf) [Adcirca (Nf)] 40 mg PO QDAY 12/01/16 05/13/17 05/12/17 ALPRAZolam [Xanax TAB] 0.5 mg PO BID PRN 12/02/16 05/13/17 11/28/16 Gabapentin [Neurontin] 300 mg PO HS 05/13/17 05/13/17 05/12/17 HYDROcodone/APAP 5-325 [[place] 1 each PO Q6HR PRN 05/13/17 05/13/17 05/12/17 5/325] Meloxicam [Mobic] 15 mg PO DAILY 05/13/17 05/13/17 05/12/17 Previous Rx's Medication Instructions Recorded Last Taken Type Furosemide [Lasix] 40 mg PO DAILY #30 tablet 07/03/14 05/12/17 Rx Allergies Allergy/AdvReac Type Severity Reaction Status Date / Time No Known Allergies Allergy Verified 12/06/16 19:35 Heart Score - HEART Score History: Slightly suspicious EKG: Non-specific Age: > 65 Risk factors: 1-2 risk factors Troponin: < normal limit HEART Score: 4 ED Review of Systems ROS: Stated complaint: CP Other details as noted in HPI Comment: All other systems reviewed and negative Constitutional: denies: chills, fever Eyes: denies: eye pain, eye discharge, vision change ENT: denies: ear pain, throat pain Respiratory: shortness of breath. denies: cough Cardiovascular: chest pain. denies: palpitations Gastrointestinal: denies: abdominal pain, vomiting Genitourinary: denies: urgency, dysuria Musculoskeletal: denies: back pain, joint swelling, arthralgia Skin: denies: rash, lesions Neurological: denies: headache, weakness, paresthesias ED Past Medical Hx - Past Medical History Previous Medical History?: Yes Hx Hypertension: Yes (FOR 10+ YRS, DR. 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 pulmonary artery hypertension - Surgical History Past Surgical History?: Yes Hx Coronary Stent: No Hx Open Heart Surgery: No Hx Pacemaker: No Hx Internal Defibrillator: No Hx Cholecystectomy: Yes Additional Surgical History: hernia repair, - Social History Smoking Status: Never Smoker Substance Use Type: None - Medications Home Medications: Home Medications Medication Instructions Recorded Confirmed Last Taken Type Aspirin [Aspirin BABY CHEW TAB] 162 mg PO DAILY 0905/13/17 05/12/17 History Tamsulosin [Flomax] 0.4 mg PO QDAY 05/18/14 05/13/17 05/12/17 History Allopurinol [Zyloprim] 100 mg PO QDAY 06/28/14 05/13/17 05/12/17 History Atorvastatin (Nf) [Lipitor (Nf)] 20 mg PO QDAY 06/28/14 05/13/17 05/12/17 History Furosemide [Lasix] 40 mg PO DAILY #30 tablet 07/03/14 05/13/17 05/12/17 Rx Tadalafil (Nf) [Adcirca (Nf)] 40 mg PO QDAY 12/01/16 05/13/17 05/12/17 History ALPRAZolam [Xanax TAB] 0.5 mg PO BID PRN 12/02/16 05/13/17 11/28/16 History Gabapentin [Neurontin] 300 mg PO HS 05/13/17 05/13/17 05/12/17 History HYDROcodone/APAP 5-325 [[place] 1 each PO Q6HR PRN 05/13/17 05/13/17 05/12/17 History 5/325] Meloxicam [Mobic] 15 mg PO DAILY 05/13/17 05/13/17 05/12/17 History ED Physical Exam - General Limitations: No Limitations - Other Other exam information: GENERAL: The patient is well-developed well-nourished. HENT: Normocephalic. Atraumatic. Patient has moist mucous membranes. EYES: Extraocular motions are intact. Pupils equal reactive to light bilaterally. NECK: Supple. Trachea is midline. CHEST/LUNGS: Clear to auscultation. There is no respiratory distress noted. Chest pain is not reproducible to palpation chest wall. HEART/CARDIOVASCULAR: Regular. There is no tachycardia. There is no gallop rub or murmur. ABDOMEN: Abdomen is soft, nontender. Patient has normal bowel sounds. There is no abdominal distention. SKIN: Skin is warm and dry. NEURO: The patient is awake, alert, and oriented. The patient is cooperative. The patient has no focal neurologic deficits. The patient has normal speech. MUSCULOSKELETAL: There is no tenderness or deformity. There is no limitation range of motion. There is no evidence of acute injury. ED Course Vital Signs 05/13/17 05/13/17 05/13/17 06:46 07:54 08:00 Temperature 98.3 F Pulse Rate 80 85 71 Respiratory 20 19 23 Rate Blood Pressure 165/91 Blood Pressure 168/107 [Right] O2 Sat by Pulse 97 83 L 100 Oximetry 05/13/17 05/13/17 05/13/17 08:06 08:41 09:35 Temperature 98.2 F Pulse Rate 75 70 Respiratory 16 16 Rate Blood Pressure 166/90 Blood Pressure 176/93 [Right] O2 Sat by Pulse 100 100 Oximetry 05/13/17 09:56 Temperature Pulse Rate Respiratory 16 Rate Blood Pressure Blood Pressure [Right] O2 Sat by Pulse Oximetry - Consultations Consultation #1: I spoke to the PA for [facility] who is into the case presentation and was willing to move up the patient's appointment with cardiology to the . However the patient continues to have significant discomfort and I let them know that the patient will be admitted and they will most likely be consult. She was able to let me know that the patient recently had an echocardiogram and had a negative heart cath about 2 years ago. No recent stress test. 05/13/17 12:20 VON score - Von Score Age > 65: (1) Yes Aspirin use within the Past 7 Days: (0) No 3 or more CAD Risk Factors: (1) Yes 2 or more Angina events in past 24 hrs: (1) Yes Known CAD with more than 50% Stenosis: (0) No Elevated Cardiac Markers: (0) No ST Deviation Greater than 0.5mm: (0) No VON Score: 3 ED Medical Decision Making - Lab Data Result diagrams: 05/13/17 07:01 05/13/17 07:01 - EKG Data -: EKG Interpreted by Me EKG shows normal: sinus rhythm, axis, intervals, QRS complexes (LVH, Q waves to V1), ST-T waves (nonspecific ST-T waves) Rate: normal - EKG Data When compared to previous EKG there are: no significant change Interpretation: unchanged when compared t (11/19/16) - Radiology Data Radiology results: image reviewed interpreted by me: Chest x-ray does not show any acute process. There are no pleural effusions, obvious pneumonia and there is no pneumothorax. - Medical Decision Making 76-year-old male presents emergency Department with some midsternal left-sided chest pain since last night. It could be GI in origin as it started just after eating but it is not all midline and there is no signs of any esophageal obstruction. Vital signs stable. Negative troponins 2 and negative d-dimer. Patient received multiple doses of IV pain medication and continues to the plane of the chest discomfort. For this reason he will be admitted to the hospital for further evaluation and treatment and has been accepted for admission by the hospitalist, Dr. Sanchez. - Differential Diagnosis MD, PE, Costochondritis, Pneumonia, Esophageal spasm Critical Care Time: No Critical care attestation.: If time is entered above; I have spent that time in minutes in the direct care of this critically ill patient, excluding procedure time. ED Disposition Clinical Impression: Pulmonary interstitial fibrosis Chest pain Qualifiers: Chest pain type: unspecified Qualified Code(s): R07.9 - Chest pain, unspecified Hypertension Qualifiers: Hypertension type: essential hypertension Qualified Code(s): I10 - Essential ( primary) hypertension Disposition: OP ADMIT IP TO THIS HOSP Is pt being admited?: Yes Condition: Stable Instructions: Chest Pain (ED), Hypertension (ED) Referrals: PRIMARY CARE, [Primary Care Provider] - 3-5 Days Time of Disposition: 12:23
[2017-05-13] MEDS ORDERED: LOPRESSOR IV ONE (09:11)
[2017-05-13] MEDS ORDERED: DILAUDID IV ONE ×3 (09:44→13:58)
--- NOTE | 2017-05-13 11:05 | Admit Criteria Form ---
Admission Criteria Documentation: CARDIOLOGY GRG Clinical Indications for Admission to Inpatient Care ([place]/check or initial the applicable condition/criteria) Hospital admission is needed for appropriate care of the patient because of ANY ONE of the following: [ ] I. Hemodynamic instability as indicated by ALL of the following (1)(2)(3) (4)(5)(6)(7)(8)(9)(10) [ ]a) Vital sign abnormality not readily corrected by appropriate treatment with 12-24 hours for ANY ONE: [ ]i) Hypotension that persists despite appropriate treatment (eg, volume repletion) [ ]ii) Tachycardiathat persists despite appropriate tx ( e.g., analgesia, fluids, sedation as indicated [ ]iii) Orthostatic vital sign changes that persists despite appropriate treatment (eg, volume repletion) [ ]b) Vital sign abnormailty that is severe indicated by ANY ONE of the following: [ ]i) Inadequate perfusion indicated by ANY ONE of the following: [ ] 1) Lactic acidosis (> 2 mmol/L) [ ] 2) New abnormal capillary refill (> 3 seconds) [ ] 3) Reduced urine output [ ] 4) New altered mental status [ ] 5) Myocardial Ischemia [ ] 6) Other metabolic acidosis (arterial pH <7.35 ) not otherwise explained. [ ]ii) Mean arterial pressure[A] less than 60 mm Hg [ ]iii) Mean arterial pressure[A] less than 70 mm Hg after 30 minutes of appropriate treatment (eg, fluid resuscitation) [ ]iv) Sustained heart rate greater than 120 beats per minute in adult or child 6 years or older[B] [ ]v) IV inotropic or vasopressor medication required to maintain adequate blood pressure or perfusion [ ] II. Severe heart failure as indicated by ANY ONE of the following(17)(18) [ ]a) Respiratory distress [ ]b) Hypotension [ ]c) Debilitating anasarca refractory to therapy (eg, tissue breakdown with infection)[C](19) [ ]d) Cardiac arrhythmias of immediate concern [ ]e) Myocardial ischemia [ ] III. Cardiac arrhythmias or findings of immediate concern indicated by ANY ONE of the following (21)(22): [ ] a) Heart rhythms that are inherently dangerous or unstable indicated by ANY ONE of the following (23)(24)(25): [ ] i) Resuscitated ventricular fibrillation or cardiac arrest [ ] ii) Ventricular escape rhythm [ ] iii) Sustained ventricular tachycardia (30 seconds or more of ventricular rhythm at greater than 100 beats per minute) [ ] iv) Nonsustained ventricular tachycardia and ANY ONE of the following: [ ] 1) Suspected cardiac ischemia as cause or consequence of ventricular tachycardia [ ] 2) Acute myocarditis [ ] b) Unstable cardiac conduction defects indicated by ANY ONE of the following(25)(26)(27) [ ] i) Type II second-degree atrioventricular block [ ]ii) Third-degree atrioventricular block [ ]iii) New-onset left bundle branch block with suspected myocardial ischemia [ ]c) Any heart rhythm and ANY ONE of the following (23)(24)(28)(29) (30) [ ] i) Continuous long-term ECG monitoring needed (e.g., initiation of drug requiring monitoring for more than 24 hours) [ ] ii) Patient has automatic implanted cardioverter defibrillator that is repeatedly firing, malfunctioning, or in need of immediate adjustment of settings beyond the scope of ambulatory or observation care [ ]d) Heart rhythms of concern due to ANY ONE of the following: [ ] i) Hypotension [ ] ii) Respiratory distress [ ] iii) Association with other significant symptoms (e.g., bradycardia with syncope or ongoing dizziness, supraventricular tachycardia with chest pain (28)(29)(31) [ ] IV. Monitoring for cardiac contusion beyond the scope of observation care needed [A](32)(33)(34) [ ] V. Surgical or device complication (e.g., valve replacement complication , ICD disfunction or pacemaker dysfunction) (49)(50)(51)(52)(53)(54) [ ] . Inpatient palliative care needed. [F](51)(52) Also use Inpatient Palliative Care Criteria [ ] VII. Nonbacterial thrombotic (marantic) endocarditis(43)(44)(55)(56)(57) [X ] VIII. Cardiology condition, symptom, or finding for which emergency and observation care has failed or are not considered appropriate. [ ] IX. Acute valvular disease requiring inpatient as indicated by ANY ONE of the following (40)(41) [ ]a) Acute valvular regurgitation (42) [ ]b) Noninfectious valvulitis (43)(44) [ ]c) Obstructive valve thrombosis (45)(46) [ ]d) Paravalvular leak(47)(48) [ ]e) Other significant valvular disorder remaining after emergency or observation level of care (as appropriate) [ ]X. Pericardial disease requiring inpatient treatment as indicated by ANY ONE of the following (35)(36)(37)(38) [ ]a) Suspected tamponade [ ]b) Hemopericardium [ ]c) Other significant pericardial disorder remaining after emergency or observation level of care (as appropriate)(39) [ ] XI. Cardiac ischemia beyond scope of emergency and observation care. [ ] XII. Cyanotic heart disease requiring inpatient care as indicated by 1 or more of the following(58)(59)(60): [ ]a) Acute onset of hypoxemia [ ]b) Exacerbation [ ] XIII. Hypertension requiring inpatient treatment as indicated by ANYONE of the following(11)(12)(13)(14): [ ]a) Severe hypertension (SBP greater than 180 mm Hg or DBP greater than 110 mm Hg, or greater than the 95th percentile for age, gender, and height in pediatric patients) that cannot be controlled (eg, to SBP less than 160 mm Hg and DBP less than 100 mm Hg) by emergency department or observation care treatment(15) [ ]b) Acute end organ damage secondary to hypertension (SBP greater than 140 mm Hg or DBP greater than 90 mm Hg) as indicated by ANYONE of the following: [ ] i) Hypertensive encephalopathy (eg, Altered mental status)(16) [ ] ii) Cerebral infarction [ ] iii) Intracranial hemorrhage [ ] iv) Myocardial ischemia or infarction [ ] v) Heart failure (eg, pulmonary edema) [ ] vi) Aortic dissection [ ] vii) Increased creatinine (new) with reduction of more than 50% in estimated glomerular filtration rate from baseline [ ] viii) Papilledema [ ] ix) Retinal hemorrhage [ ] x) Microangiopathic hemolytic anemia [ ] xi) Seizure [ ] xii) Other significant finding secondary to hypertension [ ] XIV. Complications of transplanted heart indicated by ANY ONE of the following(61): [ ]a) Acute graft rejection requiring inpatient management (eg, intravenous imunosuppression)(62)(63) [ ]b) Acute graft heart failure indicated by ANY ONE of the following(64): [ ] i) Hemodynamic instability [ ] ii) Cardiac arrhythmias of immediate concern [ ] iii) Pulmonary edema that is very severe (eg, mechanical ventilation needed, imminent or likely, need for 100% oxygen to keep oxygen saturation above 90%) [ ] iv) Pulmonary edema that is persistent as indicated by ALL of the following: [ ] 1) New need for oxygen therapy to keep oxygen saturation above 90 % (or increased FiO2 need from baseline) [ ] 2) Has not improved sufficiently with emergency department or observation care IV diuretics or other heart failure treatments[E]. [ ] iv) Altered mental status that is severe or persistent [ ] iv) Increased creatinine (new on laboratory test) with reduction of more than 50% in estimated glomerular filtration rate from baseline [ ] iv) Progressively (ongoing) rising creatinine (known from past laboratory test) with reduction of more than 25% in estimated glomerular filtration rate from baseline [ ] iv) Acute renal failure [ ] iv) Acute peripheral ischemia (eg, examination shows pulseless, cool, mottled, or cyanotic extremity) [ ] iv) Pulmonary artery catheter monitoring needed [ ] iv) Other sign or symptom of heart failure requiring inpatient treatment (ie, too severe or not responsive to outpatient and observation care treatment) [ ]c) Infection requiring inpatient management (eg, Hemodynamic instability, need for intravenous antimicrobial treatment)(66)(67)(68)(69)(70) [ ]d) Cardiac allograft vasculopathy requiring inpatient management (eg evidence of cardiacischemia)(71) [ ]e) Other complication of transplanted heart (eg, stroke, severe pulmonary hypertension, severe valvular dysfunction) requiring inpatient management(72) The original [employer] content created by [employer] has been revised. The portions of the content which have been revised are identified through the use of italic text or in bold, and [facility] has neither reviewed nor approved the modified material. All other unmodified content is copyright [facility]. Please see references footnoted in the original [facility] edition 2017 Admission Criteria Met: Yes
--- NOTE | 2017-05-13 13:57 | Consultation ---
History of Present Illness Consult date: 05/13/17 Consult reason: chest pain History of present illness: Patient is a 76-year-old man who presented to the emergency room with chest pain. He describes substernal chest pain which began yesterday, shortly after he had some toast and peanut butter. The pain was not exertional, and in fact he walked vigorously around his house in hopes of getting relief. There was some partial relief with the use of antacids at home. There was no shortness of breath, no palpitations and no other associated symptoms. Due to continued pain, he presented to the emergency room where he ultimately obtained relief with intravenous morphine. ECG in the emergency room was normal sinus rhythm with early representation changes, essentially normal ECG. Cardiac enzymes are normal. The patient's prior cardiac workup includes a normal cardiac catheterization 3 years ago, and a negative echocardiogram done in the outpatient 3 months ago. 3 weeks ago he sustained a left knee fracture, for which she currently wears a knee brace, but there is no swelling or pain or tenderness in the left leg. Past History Past Medical History: hypertension Medications and Allergies Allergies Allergy/AdvReac Type Severity Reaction Status Date / Time No Known Allergies Allergy Verified 12/06/16 19:35 Home Medications Medication Instructions Recorded Confirmed Last Taken Type Aspirin [Aspirin BABY CHEW TAB] 162 mg PO DAILY 05/18/14 05/13/17 05/12/17 History Tamsulosin [Flomax] 0.4 mg PO QDAY 05/18/14 05/13/17 05/12/17 History Allopurinol [Zyloprim] 100 mg PO QDAY 06/28/14 05/13/17 05/12/17 History Atorvastatin (Nf) [Lipitor (Nf)] 20 mg PO QDAY 06/28/14 05/13/17 05/12/17 History Furosemide [Lasix] 40 mg PO DAILY #30 tablet 07/03/14 05/13/17 05/12/17 Rx Tadalafil (Nf) [Adcirca (Nf)] 40 mg PO QDAY 12/01/16 05/13/17 05/12/17 History ALPRAZolam [Xanax TAB] 0.5 mg PO BID PRN 12/02/16 05/13/17 11/28/16 History Gabapentin [Neurontin] 300 mg PO HS 05/13/17 05/13/1705/12/17 History HYDROcodone/APAP 5-325 [[place] 1 each PO Q6HR PRN 05/13/17 05/13/17 05/12/17 History 5/325] Meloxicam [Mobic] 15 mg PO DAILY 05/13/17 05/13/17 05/12/17 History Active Meds: Active Medications Heparin Sodium (Porcine) (Heparin) 5,000 unit SUB-Q Q8HR HARDY Review of Systems Cardiovascular: chest pain, no orthopnea, no palpitations, no rapid/irregular heart beat, no edema, no syncope, no lightheadedness, no shortness of breath Physical Examination Vital Signs Temp Pulse Resp BP Pulse Ox 98.3 F 80 20 168/107 97 05/13/17 06:46 05/13/17 06:46 05/13/17 06:46 05/13/17 06:46 05/13/17 06:46 General appearance: no acute distress HEENT: Positive: PERRL Neck: Positive: neck supple Cardiac: Positive: Reg Rate and Rhythm Lungs: Positive: clear to auscultation Neuro: Positive: Grossly Intact Abdomen: Positive: Soft Male genitourinary: Positive: deferred Skin: Positive: Clear Extremities: Absent: edema Results 05/13/17 07:01 05/13/17 07:01 EKG interpretations - Telemetry EKG Rhythm: Sinus Rhythm Assessment and Plan - Patient Problems (1) Chest pain Current Visit: Yes Status: Acute Qualifiers: Chest pain type: unspecified Ischemic chest pain type: I Qualified Code(s ): R07.9 - Chest pain, unspecified Plan to address problem: Patient's chest pain is atypical, suggests gastroesophageal reflux, based on historical features just following a meal. For cardiac evaluation, would recommend a Persantine thallium stress test. We'll also recommend consideration of GI evaluation of his upper GI tract if symptoms persist. In addition, atypical chest pain workup should also include pulmonary embolism rule out in the setting of recent left knee injury and immobilization.
[2017-05-13] MEDS: HEPARIN SUB-Q SCH ×2 (14:21→21:24)
--- NOTE | 2017-05-13 14:53 | History and Physical Report ---
History of Present Illness Date of examination: 05/13/17 Date of admission: 05/13/17 12:02 Chief complaint: CC L sided CP since AM. History of present illness: - History of Present Illness Initial Comments: 76-year-old male presents to the emergency department by EMS from home with complaint of some midsternal and slightly left-sided chest pain has been going on since last night. The patient says that he ate some bread and peanut butter, drank a diet Coke, and the pain started shortly after this but has been going on consistently since. He has been having some belching. He also complains of worsening of his pain with inspiration. He has not taken anything for his symptoms prior to presentation. He denies any nausea, vomiting , fever, back pain or diaphoresis. He has a past medical history of GERD, hypertension, pulmonary hypertension on home O2. He has a surgical history of cholecystectomy and hernia repair. He sees Dr. Olson for cardiology, Dr. Arnold for PCP. Recent travel or sick contacts at home. The patient says that he was at [facility] cardiology about 5 months ago and had a full workup , including stress test, and was told that he has "the heart of a 49-year-old" which I am assuming means that everything was negative and/or normal. Severity scale (0 -10): 3 Past Medical History Previous Medical History?: Yes Hx Hypertension: Yes (FOR 10+ YRS, DR. Chris [facility]CG[facility]- [facility], DR. OLSON- [facility]) Hx Heart Attack/AMI: No Hx GERD: Yes Additional medical history: wears home O2. pulmonary artery hypertension - Surgical History Past Surgical History?: Yes Hx Coronary Stent: No Hx Open Heart Surgery: No Hx Pacemaker: No Hx Internal Defibrillator: No Hx Cholecystectomy: Yes Additional Surgical History: hernia repair, - Social History Smoking Status: Never Smoker Substance Use Type: None Fam Hx Htn Review of Systems Stated complaint: CP Other details as noted in HPI Comment: All other systems reviewed and negative Constitutional: denies: chills, fever Eyes: denies: eye pain, eye discharge, vision change ENT: denies: ear pain, throat pain Respiratory: shortness of breath. denies: cough Cardiovascular: chest pain. denies: palpitations Gastrointestinal: denies: abdominal pain, vomiting Genitourinary: denies: urgency, dysuria Musculoskeletal: denies: back pain, joint swelling, arthralgia Skin: denies: rash, lesions Neurological: denies: headache, weakness, paresthesias Past History Past Medical History: hypertension Medications and Allergies Allergies Allergy/AdvReac Type Severity Reaction Status Date / Time No Known Allergies Allergy Verified 12/06/16 19:35 Home Medications Medication Instructions Recorded Confirmed Last Taken Type Aspirin [Aspirin BABY CHEW TAB] 162 mg PO DAILY 05/18/14 05/13/17 05/12/17 History Tamsulosin [Flomax] 0.4 mg PO QDAY 05/18/14 05/13/17 05/12/17 History Allopurinol [Zyloprim] 100 mg PO QDAY 06/28/14 05/13/17 05/12/17 History Atorvastatin (Nf) [Lipitor (Nf)] 20 mg PO QDAY 06/28/14 05/13/17 05/12/17 History Furosemide [Lasix] 40 mg PO DAILY #30 tablet 07/03/14 05/13/17 05/12/17 Rx Tadalafil (Nf) [Adcirca (Nf)] 40 mg PO QDAY 12/01/16 05/13/17 05/12/17 History ALPRAZolam [Xanax TAB] 0.5 mg PO BID PRN 12/02/16 05/13/17 11/28/16 History Gabapentin [Neurontin] 300 mg PO HS 05/13/17 05/13/17 05/12/17 History HYDROcodone/APAP 5-325 [[place] 1 each PO Q6HR PRN 05/13/17 05/13/17 05/12/17 History 5/325] Meloxicam [Mobic] 15 mg PO DAILY 05/13/17 05/13/17 05/12/17 History Active Meds: Active Medications Heparin Sodium (Porcine) (Heparin) 5,000 unit SUB-Q Q8HR HARDY Last Admin: 05/13/17 14:21 Dose: 5,000 unit Exam - Physical Exam Narrative exam: Lying cxomfortably - Constitutional Vitals: Temp Pulse Resp BP Pulse Ox 98.2 F 70 14 166/90 100 05/13/17 08:06 05/13/17 09:35 05/13/17 14:12 05/13/17 09:35 05/13/17 08:41 General appearance: Present: no acute distress, well-nourished - EENT Eyes: Present: PERRL ENT: hearing intact, clear oral mucosa - Neck Neck: Present: supple, normal ROM - Respiratory Respiratory effort: normal Respiratory: bilateral: CTA - Cardiovascular Heart rate: 70 Rhythm: regular Heart Sounds: Present: S1 & S2. Absent: rub, click - Extremities Extremities: no ischemia, pulses intact, pulses symmetrical, No edema Peripheral Pulses: within normal limits - Abdominal General gastrointestinal: Present: soft, non-tender, non-distended, normal bowel sounds Male genitourinary: Present: normal - Integumentary Integumentary: Present: clear, warm, dry - Musculoskeletal Musculoskeletal: gait normal, strength equal bilaterally - Psychiatric Psychiatric: appropriate mood/affect, intact judgment & insight - Neurologic Neurologic: CNII-XII intact, moves all extremities - Allied Health Allied health notes reviewed: nursing, case management Results - Labs CBC & Chem 7: 05/14/17 03:34 05/14/17 03:34 Labs: Laboratory Last Values WBC 7.2 K/mm3 (4.5-11.0) 05/13/17 07:01 RBC 4.45 M/mm3 (3.65-5.03) 05/13/17 07:01 Hgb 14.8 gm/dl (11.8-15.2) 05/13/17 07:01 Hct 42.3 % (35.5-45.6) 05/13/17 07:01 MCV 95 fl (84-94) H 05/13/17 07:01 MCH 33 pg (28-32) H 05/13/17 07:01 MCHC 35 % (32-34) H 05/13/17 07:01 RDW 13.0 % (13.2-15.2) L 05/13/17 07:01 Plt Count 120 K/mm3 (140-440) L 05/13/17 07:01 Lymph % (Auto) 14.7 % (13.4-35.0) 05/13/17 07:01 [place] % (Auto) 9.1 % (0.0-7.3) H 05/13/17 07:01 Eos % (Auto) 2.1 % (0.0-4.3) 05/13/17 07:01 Baso % (Auto) 0.2 % (0.0-1.8) 05/13/17 07:01 Lymph # 1.1 K/mm3 (1.2-5.4) L 05/13/17 07:01 [place] # 0.7 K/mm3 (0.0-0.8) 05/13/17 07:01 Eos # 0.2 K/mm3 (0.0-0.4) 05/13/17 07:01 Baso # 0.0 K/mm3 (0.0-0.1) 05/13/17 07:01 Seg Neutrophils % 73.9 % (40.0-70.0) H 05/13/17 07:01 Seg Neutrophils # 5.3 K/mm3 (1.8-7.7) 05/13/17 07:01 PT 13.5 Sec. (12.2-14.9) 05/13/17 07:01 INR 0.98 (0.87-1.13) 05/13/17 07:01 APTT 31.1 Sec. (24.2-36.6) 05/13/17 07:01 D-Dimer 225.47 ng/mlDDU (0-234) 05/13/17 07:01 Sodium 138 mmol/L (137-145) 05/13/17 07:01 Potassium 4.6 mmol/L (3.6-5.0) 05/13/17 07:01 Chloride 98.0 mmol/L (98-107) 05/13/17 07:01 Carbon Dioxide 28 mmol/L (22-30) 05/13/17 07:01 Anion Gap 17 mmol/L 05/13/17 07:01 BUN 15 mg/dL (9-20) 05/13/17 07:01 Creatinine 0.6 mg/dL (0.8-1.5) L 05/13/17 07:01 Estimated GFR > 60 ml/min 05/13/17 07:01 BUN/Creatinine Ratio 25.00 % 05/13/17 07:01 Glucose 112 mg/dL (75-100) H 05/13/17 07:01 Calcium 9.1 mg/dL (8.4-10.2) 05/13/17 07:01 Total Bilirubin 1.00 mg/dL (0.1-1.2) 05/13/17 07:01 AST 27 units/L (5-40) 05/13/17 07:01 ALT 36 units/L (7-56) 05/13/17 07:01 Alkaline Phosphatase 80 units/L (35-129) 05/13/17 07:01 Troponin T < 0.010 ng/mL (0.00-0.029) 05/13/17 12:38 NT-Pro-B Natriuret Pep 192.4 pg/mL (0-900) 05/13/17 07:01 Total Protein 7.6 g/dL (6.3-8.2) 05/13/17 07:01 Albumin 4.3 g/dL (3.9-5) 05/13/17 07:01 Albumin/Globulin Ratio 1.3 % 05/13/17 07:01 Lipase 24 units/L (13-60) 05/13/17 07:01 Short CBC 05/13/17 05/14/17 Range/Units 07:01 03:34 WBC 7.2 5.9 (4.5-11.0) K/mm3 Hgb 14.8 13.4 (11.8-15.2) gm/dl Hct 42.3 40.0 (35.5-45.6) % Plt Count 120 L 112 L (140-440) K/mm3 BMP 05/13/17 05/14/17 07:01 03:34 Sodium 138 141 Potassium 4.6 5.2 H Chloride 98.0 98.4 Carbon Dioxide 28 30 BUN 15 14 Creatinine 0.6 L 0.7 L Glucose 112 H 108 H Calcium 9.1 8.8 Cardiac Enzymes 05/13/17 05/13/17 05/13/17 Range/Units 07:01 10:00 12:38 Total Creatine Kinase (55-170) units/L CK-MB (CK-2) (0.0-4.0) ng/mL Troponin T < 0.010 < 0.010 < 0.010 (0.00-0.029) ng/mL 05/13/17 05/13/17 05/14/17 Range/Units 15:20 20:31 03:34 Total Creatine Kinase 30 L 69 164 (55-170) units/L CK-MB (CK-2) 1.1 2.0 3.6 (0.0-4.0) ng/mL Troponin T < 0.010 < 0.010 < 0.010 (0.00-0.029) ng/mL Liver Function 05/13/17 05/14/17 Range/Units 07:01 03:34 Total Bilirubin 1.00 1.30 H (0.1-1.2) mg/dL AST 27 21 (5-40) units/L ALT 36 30 (7-56) units/L Alkaline Phosphatase 80 76 (35-129) units/L Albumin 4.3 3.9 (3.9-5) g/dL - Imaging and Cardiology EKG: report reviewed (NSR 69/min ST elevation probably early repolarization) Assessment and Plan Advance Directives: Yes (Full code) VTE prophylaxis?: Chemical Plan of care discussed with patient/family: Yes - Patient Problems (1) Acute coronary syndrome Current Visit: Yes Status: Acute Plan to address problem: Had recent w/u with [facility] and was negative.More in favor of Reflux esophagitis.Will defer to Cardiology reg Rpt Lexiscan versus cath. (2) Reflux esophagitis Current Visit: Yes Status: Acute Plan to address problem: More in favor of Reflux esophagitis. Initiated on Protonix. No need for EGD at this point unless symptoms not responding to PPI's (3) Pulmonary arterial hypertension Current Visit: Yes Status: Chronic Plan to address problem: On Home O2 and Tadalafil 40 mg po qd (4) Hypertension Current Visit: Yes Status: Chronic Qualifiers: Hypertension type: essential hypertension Qualified Code(s): I10 - Essential (primary) hypertension Plan to address problem: Cont Amlodipine /Benazepril 10/40 qd (5) BPH (benign prostatic hyperplasia) Current Visit: Yes Status: Chronic Qualifiers: Lower urinary tract symptom presence: symptoms present Lower urinary tract symptom detail: urinary hesitancy Qualified Code(s): N40.1 - Benign prostatic hyperplasia with lower urinary tract symptoms; R39.11 - Hesitancy of micturition Plan to address problem: Cont Tamsulosin 0.4 mg po qd (6) HLD (hyperlipidemia) Current Visit: Yes Status: Chronic Qualifiers: Hyperlipidemia type: mixed hyperlipidemia Qualified Code(s): E78.2 - Mixed hyperlipidemia Plan to address problem: Cont statins (7) DVT prophylaxis Current Visit: No Status: Acute Plan to address problem: On Lovenox
[2017-05-13] MEDS ORDERED: PERCOCET 5/325 PO PRN (14:55)
[2017-05-13] MEDS ORDERED: MILK OF MAGNESIA PO PRN (14:55)
[2017-05-13] MEDS ORDERED: ZOFRAN IV PRN (14:55)
[2017-05-13] MEDS ORDERED: DULCOLAX PR PRN (14:55)
[2017-05-13] MEDS ORDERED: DILAUDID IV PRN (14:55)
[2017-05-13] MEDS ORDERED: TYLENOL PO PRN (14:55)
[2017-05-13] MEDS ORDERED: NACL 0.9% 1000 ML 1,000 ML IV SCH (15:00)
[2017-05-13] MEDS: BABY ASPIRIN PO SCH (15:55)
[2017-05-13] MEDS: ZYLOPRIM PO SCH (15:59)
[2017-05-13] MEDS: XANAX PO PRN (16:04)
[2017-05-13 16:05] LABS: Creatine Kinase MB 1.1 ng/mL (0.0-4.0)
[2017-05-13 16:06] LABS: Creatine Kinase 30 units/L (55-170)
[2017-05-13] MEDS: NORCO 5/325 PO PRN (16:18)
[2017-05-13 21:10] LABS: Creatine Kinase 69 units/L (55-170)
[2017-05-13] MEDS: FLOMAX PO SCH (21:22)
[2017-05-13] MEDS: PEPCID PO SCH (21:23)
[2017-05-13] MEDS: NEURONTIN PO SCH (23:20)
[2017-05-14] MEDS: XANAX PO PRN ×3 (01:02→21:03)
[2017-05-14 04:15] LABS: Creatine Kinase MB 3.6 ng/mL (0.0-4.0)
[2017-05-14 04:16] LABS: Alanine Aminotransferase 30 units/L (7-56); Albumin 3.9 g/dL (3.9-5); Albumin/Globulin Ratio 1.4 %; Alkaline Phosphatase 76 units/L (35-129); Anion Gap 18 mmol/L; Blood Urea Nitrogen 14 mg/dL (9-20); Calcium 8.8 mg/dL (8.4-10.2); Carbon Dioxide 30 mmol/L (22-30); Chloride 98.4 mmol/L (98-107); Glucose 108 mg/dL (75-100); Potassium 5.2 mmol/L (3.6-5.0); Sodium 141 mmol/L (137-145); Total Protein 6.6 g/dL (6.3-8.2)
[2017-05-14 04:17] LABS: Creatine Kinase 164 units/L (55-170)
[2017-05-14 04:30] LABS: Basophils % (Auto) 0.3 % (0.0-1.8); Eosinophils % (Auto) 1.3 % (0.0-4.3); Hemoglobin 13.4 gm/dl (11.8-15.2); Mean Corpuscular HGB Conc 34 % (32-34); Mean Corpuscular Hemoglobin 32 pg (28-32); Mean Corpuscular Volume 96 fl (84-94); Platelet Count 112 K/mm3 (140-440); Red Blood Count 4.16 M/mm3 (3.65-5.03); Red Cell Distribution Width 13.1 % (13.2-15.2); White Blood Count 5.9 K/mm3 (4.5-11.0)
[2017-05-14] MEDS: LASIX PO SCH (06:22)
[2017-05-14] MEDS: NORCO 5/325 PO PRN (06:22)
[2017-05-14] MEDS: HEPARIN SUB-Q SCH ×3 (06:23→21:04)
[2017-05-14] MEDS ORDERED: LEXISCAN IV ONE ×2 (09:23)
[2017-05-14] MEDS ORDERED: NON-FORMULARY (Meloxicam [Mobic] 15 MG) PO SCH (10:00)
[2017-05-14] MEDS ORDERED: NON-FORMULARY (Tadalafil (Nf) 40 MG) PO SCH (10:00)
[2017-05-14] MEDS ORDERED: MOBIC PO SCH (10:00)
[2017-05-14] MEDS ORDERED: Fluarix Quad 2017-2018(36 MOS+) IM ONE (12:00)
[2017-05-14] MEDS: PEPCID PO SCH ×2 (12:08→21:03)
[2017-05-14] MEDS: BABY ASPIRIN PO SCH (12:09)
[2017-05-14] MEDS: ZYLOPRIM PO SCH (12:19)
--- NOTE | 2017-05-14 12:31 | Progress Note ---
Assessment and Plan Chest Pain Normal lexiscan Borderline potassium level Recommendations: No further cardiac work-up needed Subjective Date of service: 05/14/17 Principal diagnosis: Chest Pain Interval history: Lexiscan performed - no complications Objective Vital Signs Temp Pulse Resp BP BP Pulse Ox 05/14/17 12:18 20 05/14/17 12:07 20 05/14/17 11:12 98.1 F 104 H 112/72 93 05/14/17 09:35 103 H 130/63 05/14/17 09:34 105 H 130/63 05/14/17 09:33 107 H 121/61 05/14/17 09:32 107 H 102/62 05/14/17 09:31 108 H 133/69 05/14/17 09:30 102 H 137/74 05/14/17 07:35 99.4 F 89 20 124/72 93 05/14/17 06:19 98.9 F 90 20 129/78 92 05/13/17 23:51 98.7 F 93 H 20 137/80 97 05/13/17 23:38 80 05/13/17 22:00 96 05/13/17 20:05 99.5 F 66 20 115/74 95 05/13/17 20:04 99.8 F H 85 20 115/74 96 05/13/17 19:00 118 H 127/72 97 05/13/17 18:30 99 F 92 H 20 135/79 97 05/13/17 18:29 18 05/13/17 18:10 99.0 F 93 H 20 133/79 89 05/13/17 17:50 87 19 127/72 95 05/13/17 17:40 89 16 135/79 95 05/13/17 17:32 99 F 92 H 20 135/79 97 05/13/17 17:30 93 H 20 135/79 94 05/13/17 17:20 89 16 127/76 95 05/13/17 17:00 93 H 18 139/78 95 05/13/17 16:40 91 H 17 131/83 97 05/13/17 16:20 91 H 18 145/83 98 05/13/17 16:00 88 21 149/82 96 05/13/17 15:40 104 H 21 132/80 95 05/13/17 15:20 91 H 22 133/78 95 05/13/17 15:00 87 15 140/84 97 05/13/17 14:40 91 H 17 135/77 97 05/13/17 14:20 89 17 125/65 96 05/13/17 14:12 14 05/13/17 14:00 88 18 132/77 98 05/13/17 13:40 89 17 136/75 98 05/13/17 13:20 89 19 128/76 98 05/13/17 13:00 86 16 124/78 97 05/13/17 12:40 85 19 145/84 97 - Physical Examination HEENT: Positive: PERRL Neck: Positive: neck supple Cardiac: Positive: Reg Rate and Rhythm Lungs: Positive: Normal Exam Neuro: Positive: Grossly Intact Abdomen: Positive: Soft Skin: Positive: Clear Extremities: Absent: edema - Labs and Meds Cardiac Enzymes 05/13/17 05/13/17 05/14/17 Range/Units 15:20 20:31 03:34 AST 21 (5-40) units/L CK-MB (CK-2) 1.1 2.0 (0.0-4.0) ng/mL 05/14/17 Range/Units 03:34 AST (5-40) units/L CK-MB (CK-2) 3.6 (0.0-4.0) ng/mL CBC 05/14/17 Range/Units 03:34 WBC 5.9 (4.5-11.0) K/mm3 RBC 4.16 (3.65-5.03) M/mm3 Hgb 13.4 (11.8-15.2) gm/dl Hct 40.0 (35.5-45.6) % Plt Count 112 L (140-440) K/mm3 Lymph # 1.4 (1.2-5.4) K/mm3 [place] # 0.7 (0.0-0.8) K/mm3 Eos # 0.1 (0.0-0.4) K/mm3 Baso # 0.0 (0.0-0.1) K/mm3 Comprehensive Metabolic Panel 05/14/17 Range/Units 03:34 Sodium 141 (137-145) mmol/L Potassium 5.2 H (3.6-5.0) mmol/L Chloride 98.4 (98-107) mmol/L Carbon Dioxide 30 (22-30) mmol/L BUN 14 (9-20) mg/dL Creatinine 0.7 L (0.8-1.5) mg/dL Glucose 108 H (75-100) mg/dL Calcium 8.8 (8.4-10.2) mg/dL AST 21 (5-40) units/L ALT 30 (7-56) units/L Alkaline Phosphatase 76 (35-129) units/L Total Protein 6.6 (6.3-8.2) g/dL Albumin 3.9 (3.9-5) g/dL - Imaging and Cardiology EKG: report reviewed (NSR 69/min ST elevation probably early repolarization)
--- NOTE | 2017-05-14 17:30 | Progress Note ---
Assessment and Plan Assessment and plan: Patient is a 76-year-old male presents to the emergency department by EMS from home with complaint of some midsternal and slightly left-sided chest pain has been going on since last night. The patient says that he ate some bread and peanut butter, drank a diet Coke, and the pain started shortly after this but has been going on consistently since. He has been having some belching. He also complains of worsening of his pain with inspiration. He has not taken anything for his symptoms prior to presentation. He denies any nausea , vomiting, fever, back pain or diaphoresis. He has a past medical history of GERD, hypertension, pulmonary hypertension on home O2. He has a surgical history of cholecystectomy and hernia repair. He sees Dr. Olson for cardiology, Dr. Arnold for PCP. Atypical chest pain likely secondary to GERD -negative stress test, consdering recent surgery and complain of leg pain will r /o Pe -Continue current medications. Patient still had some chest pain this am GERD -Continue Famotidine -outpatient GI evaluation Hypertensive urgency with now hypotension -Hold antihypertensives. Patient was with hypertensive urgency on admission Hypokalemia -Replaced. Hyperbilirubinemia -Likely transient. Recommend outpatient monitoring. No abdominal complaints at this time DVT/GI prophy D/C IN AM IF CTA NEGATIVE Discussed plan with patient and spouse and cardiology team History Interval history: Patient seen and examined this morning was still having some chest pain in the morning but now resolved. Had a stress test today which is unremarkable. Hospitalist Physical - Physical exam Narrative exam: VITAL SIGNS: Reviewed. GENERAL: The patient appeared well nourished and normally developed. Vital signs as documented. HEAD: No signs of head trauma. EYES: Pupils are equal. Extraocular motions intact. EARS: Hearing grossly intact. MOUTH: Oropharynx is normal. NECK: No adenopathy, no JVD. CHEST: Chest with clear breath sounds bilaterally. No wheezes, rales, or rhonchi. CARDIAC: Regular rate and rhythm. S1 and S2, without murmurs, gallops, or rubs. VASCULAR: No Edema. Peripheral pulses normal and equal in all extremities. ABDOMEN: Soft, without detectable tenderness. No sign of distention. No rebound or guarding, and no masses palpated. Bowel Sounds normal. MUSCULOSKELETAL: Good range of motion of all major joints. Extremities without clubbing, cyanosis or edema. NEUROLOGIC EXAM: Alert and oriented x 3. No focal sensory or strength deficits. Speech normal. Follows commands. PSYCHIATRIC: Mood normal. SKIN: No rash or lesions. - Constitutional Vitals: Temp Pulse Resp BP Pulse Ox 98.8 F 64 18 85/49 96 05/14/17 15:55 05/14/17 15:55 05/14/17 15:55 05/14/17 15:55 05/14/17 15:55 General appearance: Present: no acute distress, well-nourished Results - Labs CBC & Chem 7: 05/14/17 03:34 05/14/17 03:34 Labs: Laboratory Last Values WBC 5.9 K/mm3 (4.5-11.0) 05/14/17 03:34 RBC 4.16 M/mm3 (3.65-5.03) 05/14/17 03:34 Hgb 13.4 gm/dl (11.8-15.2) 05/14/17 03:34 Hct 40.0 % (35.5-45.6) 05/14/17 03:34 MCV 96 fl (84-94) H 05/14/17 03:34 MCH 32 pg (28-32) 05/14/17 03:34 MCHC 34 % (32-34) 05/14/17 03:34 RDW 13.1 % (13.2-15.2) L 05/14/17 03:34 Plt Count 112 K/mm3 (140-440) L 05/14/17 03:34 Lymph % (Auto) 24.4 % (13.4-35.0) 05/14/17 03:34 [place] % (Auto) 11.6 % (0.0-7.3) H 05/14/17 03:34 Eos % (Auto) 1.3 % (0.0-4.3) 05/14/17 03:34 Baso % (Auto) 0.3 % (0.0-1.8) 05/14/17 03:34 Lymph # 1.4 K/mm3 (1.2-5.4) 05/14/17 03:34 [place] # 0.7 K/mm3 (0.0-0.8) 05/14/17 03:34 Eos # 0.1 K/mm3 (0.0-0.4) 05/14/17 03:34 Baso # 0.0 K/mm3 (0.0-0.1) 05/14/17 03:34 Seg Neutrophils % 62.4 % (40.0-70.0) 05/14/17 03:34 Seg Neutrophils # 3.7 K/mm3 (1.8-7.7) 05/14/17 03:34 PT 13.5 Sec. (12.2-14.9) 05/13/17 07:01 INR 0.98 (0.87-1.13) 05/13/17 07:01 APTT 31.1 Sec. (24.2-36.6) 05/13/17 07:01 D-Dimer 225.47 ng/mlDDU (0-234) 05/13/17 07:01 Sodium 141 mmol/L (137-145) 05/14/17 03:34 Potassium 5.2 mmol/L (3.6-5.0) H 05/14/17 03:34 Chloride 98.4 mmol/L (98-107) 05/14/17 03:34 Carbon Dioxide 30 mmol/L (22-30) 05/14/17 03:34 Anion Gap 18 mmol/L 05/14/17 03:34 BUN 14 mg/dL (9-20) 05/14/17 03:34 Creatinine 0.7 mg/dL (0.8-1.5) L 05/14/17 03:34 Estimated GFR > 60 ml/min 05/14/17 03:34 BUN/Creatinine Ratio 20.00 % 05/14/17 03:34 Glucose 108 mg/dL (75-100) H 05/14/17 03:34 Hemoglobin A1c 5.5 % (4-6) 05/13/17 15:20 Calcium 8.8 mg/dL (8.4-10.2) 05/14/17 03:34 Total Bilirubin 1.30 mg/dL (0.1-1.2) H 05/14/17 03:34 AST 21 units/L (5-40) 05/14/17 03:34 ALT 30 units/L (7-56) 05/14/17 03:34 Alkaline Phosphatase 76 units/L (35-129) 05/14/17 03:34 Total Creatine Kinase 164 units/L (55-170) 05/14/17 03:34 CK-MB (CK-2) 3.6 ng/mL (0.0-4.0) 05/14/17 03:34 CK-MB (CK-2) Rel Index 2.1 (0-4) 05/14/17 03:34 Troponin T < 0.010 ng/mL (0.00-0.029) 05/14/17 03:34 NT-Pro-B Natriuret Pep 192.4 pg/mL (0-900) 05/13/17 07:01 Total Protein 6.6 g/dL (6.3-8.2) 05/14/17 03:34 Albumin 3.9 g/dL (3.9-5) 05/14/17 03:34 Albumin/Globulin Ratio 1.4 % 05/14/17 03:34 Lipase 24 units/L (13-60) 05/13/17 07:01 - Imaging and Cardiology Chest x-ray: image reviewed (review and unremarkable)
[2017-05-14] MEDS: FLOMAX PO SCH (21:04)
[2017-05-14] MEDS: NEURONTIN PO SCH (22:32)
--- NOTE | 2017-05-15 00:38 | Treadmill Report ---
INDICATION: Chest pain. ORDERING PHYSICIAN: Gem Hernandez MD FINDINGS: There is no scintigraphic evidence of myocardial ischemia. The left ventricle is normal in size and systolic function. LV ejection fraction is measured at 60%. Normal wall motion and wall thickening on gated imaging. CONCLUSION: Normal perfusion scan. JOB# [id number] STEPHANIE/NTS
[2017-05-15] MEDS: HEPARIN SUB-Q SCH (05:50)
[2017-05-15] MEDS: LASIX PO SCH (05:50)
--- NOTE | 2017-05-15 08:12 | Discharge Summary ---
Providers - Providers Date of Admission: 05/13/17 12:02 Attending physician: ALMA TORREZ MD Primary care physician: [employer] Hospitalization Reason for admission: chest pain Condition: Stable Hospital course: Patient is a 76-year-old male presents to the emergency department by EMS from home with complaint of some midsternal and slightly left-sided chest pain has been going on since last night. The patient says that he ate some bread and peanut butter, drank a diet Coke, and the pain started shortly after this but has been going on consistently since. He has been having some belching. He also complains of worsening of his pain with inspiration. He has not taken anything for his symptoms prior to presentation. He denies any nausea , vomiting, fever, back pain or diaphoresis. He has a past medical history of GERD, hypertension, pulmonary hypertension on home O2. He has a surgical history of cholecystectomy and hernia repair. He sees Dr. Olson for cardiology, Dr. Arnold for PCP. Atypical chest pain likely secondary to GERD -negative stress test, most ruled out with CTA chest -Continue current medications. GERD -Continue Famotidine -outpatient GI evaluation discussed in detail with the patient. Hypertensive urgency with now hypotension -Hold antihypertensives. Patient was with hypertensive urgency on admission Hypokalemia -Replaced. Hyperbilirubinemia -Likely transient. Recommend outpatient monitoring. No abdominal complaints at this time Disposition: DC-01 TO HOME OR SELFCARE Time spent for discharge: 35 mins Core Measure Documentation - Palliative Care Palliative Care/ Comfort Measures: Not Applicable - Core Measures Any of the following diagnoses?: none - VTE Discharge Requirements Deep Vein Thrombosis/Pulmonary Embolism Present on Admission: No Exam - Physical Exam Narrative exam: VITAL SIGNS: Reviewed. GENERAL: The patient appeared well nourished and normally developed. Vital signs as documented. HEAD: No signs of head trauma. EYES: Pupils are equal. Extraocular motions intact. EARS: Hearing grossly intact. MOUTH: Oropharynx is normal. NECK: No adenopathy, no JVD. CHEST: Chest with clear breath sounds bilaterally. No wheezes, rales, or rhonchi. CARDIAC: Regular rate and rhythm. S1 and S2, without murmurs, gallops, or rubs. VASCULAR: No Edema. Peripheral pulses normal and equal in all extremities. ABDOMEN: Soft, without detectable tenderness. No sign of distention. No rebound or guarding, and no masses palpated. Bowel Sounds normal. MUSCULOSKELETAL: Good range of motion of all major joints. Extremities without clubbing, cyanosis or edema. NEUROLOGIC EXAM: Alert and oriented x 3. No focal sensory or strength deficits. Speech normal. Follows commands. PSYCHIATRIC: Mood normal. SKIN: No rash or lesions. - Constitutional Vitals: Temp Pulse Resp BP Pulse Ox 98.4 F 77 20 158/92 92 05/15/17 05:51 05/15/17 05:51 05/15/17 05:51 05/15/17 05:51 05/15/17 05:51 Plan Activity: advance as tolerated, fall precautions Diet: low fat Special Instructions: record daily weights, record daily BP diary Follow up with: PRIMARY CAREMD [Primary Care Provider] - 3-5 Days DANY SHELTON MD [Staff Physician] - 7 Days Prescriptions: Famotidine [Pepcid] 20 mg PO BID #30 tablet
[2017-05-15 08:53] VITALS: BP 144/88
--- NOTE | 2017-05-15 10:18 | Progress Note ---
Assessment and Plan 1. Atypical chest pain history of normal cardiac catheterization 3 years ago with abnormal echocardiogram done 2 months ago. 2. Essential hypertension Plan. Cardiac-araujo stable no further cardiac workup planned discharge planning has been primary care physician Subjective Date of service: 05/15/17 Principal diagnosis: Chest Pain Interval history: No cardiac symptoms Objective Vital Signs Temp Pulse Resp BP BP Pulse Ox 05/15/17 07:00 97.8 F 64 21 144/88 97 05/15/17 05:51 98.4 F 77 20 158/92 92 05/15/17 00:54 98.7 F 63 20 98/58 96 05/14/17 23:00 80 05/14/17 20:48 98.3 F 60 18 128/74 96 05/14/17 15:55 98.8 F 64 18 85/49 96 05/14/17 15:00 98 H 05/14/17 12:18 20 05/14/17 12:07 20 05/14/17 11:23 91 H 99 05/14/17 11:12 98.1 F 104 H 112/72 93 - Physical Examination General: Appears Well, No Apparent Distress HEENT: Positive: PERRL Neck: Positive: neck supple, trachea midline. Negative: JVD/HJR Cardiac: Positive: Regular Rate, S1/S2. Negative: S3, S4 Lungs: Positive: Normal Exam, clear to auscultation Neuro: Positive: Grossly Intact Abdomen: Positive: Unremarkable, Soft Skin: Positive: Clear Extremities: Absent: edema - Imaging and Cardiology EKG: report reviewed (NSR 69/min ST elevation probably early repolarization)
--- NOTE | 2017-05-15 11:12 | Cat Scan Report ---
CTA chest: History: PE. Technique: CTA was performed with IV contrast and postprocessing using MIP and MPR technique. Findings: No evidence of aortic aneurysm or pulmonary embolism. Dilated pulmonary arteries suggestive of pulmonary arterial hypertension. No mediastinal mass or adenopathy. Coronary artery calcification. No pleural or pericardial effusion. Minimal bilateral pleural thickening. Linear density right lower lobe suggestive of discoid atelectasis. Multiple bulla right and left lower lobe. Honeycombing identified at right and left lower lobe. Impression: No acute pulmonary embolism. Pulmonary arterial hypertension. 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
== END 2017-05-15 12:19 | disposition home or self-care (01) | DRG 392 ==
LOC: ED 06:40 → 4A 12:02
PROVIDERS: ADMIT Internal Medicine; ATTEND Internal Medicine
PROC: 3E0234Z Introduction of Serum, Toxoid and Vaccine into Muscle, Percutaneous Approach (ICD-10-PCS; principal; 2017-05-14)
DX: K21.0 Gastro-esophageal reflux disease with esophagitis (principal); N40.0 Benign prostatic hyperplasia without lower urinary tract symptoms; E78.5 Hyperlipidemia, unspecified; I10 Essential (primary) hypertension; I16.0 Hypertensive urgency; E87.6 Hypokalemia; E80.6 Other disorders of bilirubin metabolism; J98.2 Interstitial emphysema; I27.2 Other secondary pulmonary hypertension; J84.10 Pulmonary fibrosis, unspecified; Z90.49 Acquired absence of other specified parts of digestive tract; Z79.82 Long term (current) use of aspirin; Z79.899 Other long term (current) drug therapy; Z23 Encounter for immunization
CPT/HCPCS: 36415; 71020; 71275; 78452; 80053; 82550; 82553; 83036; 83690; 83880; 84484; 85025; 85379; 85610; 85730; 90686; 93005; 93010; 93017; 96372; 96374; 96375; 96376; A9270-GY; A9502; J1170; J1644; J2270; J2785; J7030; Q9967